=== PATIENT | male | born 1990 | race African-American/Black ===

== ENCOUNTER 2017-05-17 21:33 | Emergency (ER) | payer MEDICAID ==
[~2017-05-17] VITALS: Ht 162.6 cm; Wt 64.9 kg
[2017-05-18 01:12] VITALS: BP 121/79
[2017-05-18] MEDS ORDERED: NALBUPHINE HCL 10 MG/1ml INJECTION IM ONE (01:45)
== END 2017-05-18 02:05 | disposition home or self-care (01) ==
LOC: ER 21:33
DX: M54.5 Low back pain (principal); M54.2 Cervicalgia; G89.29 Other chronic pain; Z88.6 Allergy status to analgesic agent; Z88.8 Allergy status to other drugs, medicaments and biological substances; F17.210 Nicotine dependence, cigarettes, uncomplicated; Z76.0 Encounter for issue of repeat prescription
CPT/HCPCS: 96372; 99283; J2300

== ENCOUNTER 2017-05-19 07:58 | Emergency (ER) | payer MEDICAID ==
[~2017-05-19] VITALS: Ht 162.6 cm; Wt 64.9 kg
[2017-05-19 09:11] VITALS: BP 114/82
[2017-05-19] MEDS ORDERED: KETOROLAC TROMETH 60MG/2ML VIAL IM ONE (09:30)
== END 2017-05-19 09:59 | disposition home or self-care (01) ==
LOC: ER 07:58
DX: S46.912A Strain of unspecified muscle, fascia and tendon at shoulder and upper arm level, left arm, initial encounter (principal); F17.210 Nicotine dependence, cigarettes, uncomplicated; Z88.6 Allergy status to analgesic agent; Z88.8 Allergy status to other drugs, medicaments and biological substances; X50.9XXA Other and unspecified overexertion or strenuous movements or postures, initial encounter; Y93.89 Activity, other specified; Y92.89 Other specified places as the place of occurrence of the external cause; Y99.8 Other external cause status
CPT/HCPCS: 96372; 99283; J1885

== ENCOUNTER 2017-05-22 21:47 | Emergency (ER) | payer MEDICAID ==
[~2017-05-22] VITALS: Ht 162.6 cm; Wt 64.4 kg
[2017-05-22 23:08] VITALS: BP 116/75
== END 2017-05-22 23:56 | disposition home or self-care (01) ==
LOC: ER 21:47
DX: G89.4 Chronic pain syndrome (principal); M54.9 Dorsalgia, unspecified; F17.210 Nicotine dependence, cigarettes, uncomplicated; Z88.6 Allergy status to analgesic agent; Z88.8 Allergy status to other drugs, medicaments and biological substances; Z76.0 Encounter for issue of repeat prescription

== ENCOUNTER 2017-06-04 20:09 | Emergency (ER) | payer MEDICAID ==
[~2017-06-04] VITALS: Ht 162.6 cm; Wt 63.5 kg
[2017-06-04 20:43] VITALS: BP 117/75
== END 2017-06-05 | disposition left against medical advice (07) ==
LOC: ER 20:09
DX: T78.40XA Allergy, unspecified, initial encounter (principal); Z53.21 Procedure and treatment not carried out due to patient leaving prior to being seen by health care provider

== ENCOUNTER 2017-06-05 02:25 | Emergency (ER) | payer MEDICAID ==
[~2017-06-05] VITALS: Ht 162.6 cm; Wt 63.5 kg
[2017-06-05 02:38] VITALS: BP 117/75
== END 2017-06-05 04:21 | disposition home or self-care (01) ==
LOC: ER 02:26
DX: T78.40XA Allergy, unspecified, initial encounter (principal); J45.909 Unspecified asthma, uncomplicated; F17.210 Nicotine dependence, cigarettes, uncomplicated; M54.9 Dorsalgia, unspecified; Z88.8 Allergy status to other drugs, medicaments and biological substances; Z88.6 Allergy status to analgesic agent

== ENCOUNTER 2017-06-23 08:03 | Emergency (ER) | payer MEDICAID ==
[~2017-06-23] VITALS: Ht 162.6 cm; Wt 63.5 kg
[~2017-06-23 08:03] MED LIST: ALBU2TAB4 IN
[2017-06-23 08:52] VITALS: BP 109/76
== END 2017-06-23 09:38 | disposition home or self-care (01) ==
LOC: ER 08:16
DX: M54.5 Low back pain (principal); G89.29 Other chronic pain; J45.909 Unspecified asthma, uncomplicated; F17.210 Nicotine dependence, cigarettes, uncomplicated; Z76.0 Encounter for issue of repeat prescription

== ENCOUNTER 2017-07-17 20:34 | Inpatient (IN) | payer MEDICAID ==
[~2017-07-17] VITALS: Ht 162.6 cm; Wt 63.5 kg
[2017-07-17 22:02] LABS: Basophils # (auto) 0.1 uL; Basophils % (auto) 1.9 % (0.0-2.0); Eosinophils # (auto) 0.5 uL; Eosinophils % (auto) 6.6 % (0.0-7.0); Hematocrit 43.8 % (41.0-53.0); Hemoglobin 14.5 g/dL (13.5-17.5); Lymphocytes % (auto) 54.6 % (10.0-50.0); Mean Corpuscular Hgb Conc. 33.2 g/dL (32.0-36.0); Mean Corpuscular Volume 90.5 fL (80.0-100.0); Monocytes # (auto) 0.6 uL; Monocytes % (auto) 8.5 % (0.0-12.0); Neutrophils # (auto) 2.1 uL; Neutrophils % (auto) 28.4 % (37.0-80.0); Nucleated Red Blood Cells % 0.1 %; Platelet Count (auto) 217 10^3/uL (140-450); Red Blood Cells 4.84 10^6/uL (4.5-5.90); White Blood Cell 7.3 10^3/uL (4.4-10.8)
[2017-07-17 22:16] LABS: INR 0.95 (0.9-1.15); Partial Thromboplastin Time 26.4 sec (22.64-33.71); Prothrombin Time 10.3 sec (9.37-12.3)
[2017-07-17 22:28] LABS: BUN/Creatinine Ratio 14.9; Potassium 3.7 mmol/L (3.5-5.1)
[2017-07-17 22:29] LABS: Albumin 3.9 g/dL (3.4-5.0); Bilirubin, Total 0.1 mg/dL (0.2-1.0); Calcium 8.6 mg/dL (8.5-10.1); Total Protein 7.2 g/dL (6.4-8.2)
[2017-07-18 05:06] LABS: Urine Bacteria NONE SEEN /hpf (None Seen); Urine Blood Negative /uL (Negative); Urine Mucus FEW (None Seen); Urine WBC 1 /hpf (0 - 3)
[2017-07-18] MEDS ORDERED: SODIUM CHLORIDE 0.9% 1,000 ML IV ONE (06:35)
[2017-07-18] MEDS ORDERED: NALBUPHINE HCL 10 MG/1ml INJECTION IV ONE (06:45)
[2017-07-18] MEDS ORDERED: PROMETHAZINE HCL 25 MG/ML 1ML ONE (06:47)
[2017-07-18] MEDS ORDERED: NALBUPHINE HCL 10 MG/1ml INJECTION ONE (06:48)
[2017-07-18] MEDS: PROMETHAZINE HCL 25 MG/ML 1ML IV PRN ×2 (07:01→13:49)
[2017-07-18] MEDS ORDERED: LORazepam 2MG/ML-1ML VIAL IV PRN (08:45)
[2017-07-18] MEDS ORDERED: ALBUTEROL SULF 2.5 MG/0.5ML(0.5%) NEB SOLN NEB PRN (08:45)
[2017-07-18] MEDS ORDERED: MORPHINE SULFATE 4 MG/ML SYR/VIAL IV PRN (08:45)
[2017-07-18] MEDS ORDERED: MORPHINE SULFATE 10 MG/ML INJ 1ML SDV IV PRN (08:45)
[2017-07-18] MEDS ORDERED: PROMETHAZINE HCL 25 MG/ML 1ML IV PRN (08:45)
[2017-07-18] MEDS ORDERED: cefTRIAXone 1GM/10ml IVPUSH 10 ML IV SCH (09:00)
[2017-07-18] MEDS ORDERED: cefTRIAXone 1GM/10ml IVPUSH 10 ML IV ONE (09:12)
[2017-07-18 09:21] VITALS: BP 114/69
[2017-07-18] MEDS ORDERED: FAMOTIDINE (10MG/ML) 2ML VL IV SCH (10:00)
[2017-07-18] MEDS: SODIUM CHLORIDE 0.9% 1,000 ML IV SCH ×3 (10:43→22:25)
[2017-07-18] MEDS: metroNIDAZOLE 500MG/100ML 100 ML IV SCH ×2 (13:48→22:25)
[2017-07-18] MEDS: MORPHINE SULF INJ 2 MG/ML SYRINGE 1ML IV PRN ×3 (13:49→22:33)
[2017-07-18 17:00] VITALS: BP 117/79
[2017-07-18] MEDS: SUCRALFATE 1 GM/10 ML ORAL SUSP PO SCH ×2 (17:55→22:25)
[2017-07-18 20:00] VITALS: BP 109/65
[2017-07-18 21:15] VITALS: BP 109/65
[2017-07-18] MEDS: PANTOPRAZOLE 40 MG/10 ML VIAL IV SCH (22:25)
[2017-07-19] VITALS (7 sets, daily range): BP systolic 113–127; BP diastolic 70–80
[2017-07-19 06:03] LABS: Basophils # (auto) 0.1 uL; Eosinophils # (auto) 0.4 uL; Eosinophils % (auto) 8.2 % (0.0-7.0); Hematocrit 42.5 % (41.0-53.0); Hemoglobin 14.4 g/dL (13.5-17.5); Lymphocytes # (auto) 2.3 uL; Lymphocytes % (auto) 49.9 % (10.0-50.0); Mean Corpuscular Hemoglobin 30.7 pg (28.0-32.0); Mean Corpuscular Hgb Conc. 33.8 g/dL (32.0-36.0); Mean Corpuscular Volume 90.9 fL (80.0-100.0); Monocytes # (auto) 0.5 uL; Monocytes % (auto) 9.9 % (0.0-12.0); Neutrophils # (auto) 1.4 uL; Nucleated Red Blood Cells % 0.1 %; Platelet Count (auto) 190 10^3/uL (140-450); Red Blood Cells 4.68 10^6/uL (4.5-5.90); White Blood Cell 4.6 10^3/uL (4.4-10.8)
[2017-07-19 06:10] LABS: Potassium 4.3 mmol/L (3.5-5.1)
[2017-07-19 06:18] LABS: Albumin 3.4 g/dL (3.4-5.0); BUN/Creatinine Ratio 13.9; Calcium 8.6 mg/dL (8.5-10.1)
[2017-07-19 06:20] LABS: Bilirubin, Total 0.4 mg/dL (0.2-1.0); Total Protein 5.9 g/dL (6.4-8.2)
[2017-07-19 06:21] LABS: Cholesterol 152 mg/dL (< 200); HDL Cholesterol 59 mg/dL (40-59); LDL Cholesterol 84 mg/dL (< 100); Triglycerides 72 mg/dL (< 150)
[2017-07-19] MEDS: metroNIDAZOLE 500MG/100ML 100 ML IV SCH (06:45)
[2017-07-19] MEDS: MORPHINE SULF INJ 2 MG/ML SYRINGE 1ML IV PRN ×5 (06:45→23:45)
[2017-07-19] MEDS: SODIUM CHLORIDE 0.9% 1,000 ML IV SCH ×3 (06:45→17:54)
[2017-07-19] MEDS: SUCRALFATE 1 GM/10 ML ORAL SUSP PO SCH ×4 (06:45→22:58)
[2017-07-19] MEDS: PANTOPRAZOLE 40 MG/10 ML VIAL IV SCH ×2 (10:23→22:58)
[2017-07-20] MEDS: SODIUM CHLORIDE 0.9% 1,000 ML IV SCH ×3 (00:50→13:54)
[2017-07-20 05:00] VITALS: BP 118/73
[2017-07-20 06:44] LABS: Albumin 3.2 g/dL (3.4-5.0); BUN/Creatinine Ratio 12.8; Bilirubin, Total 0.4 mg/dL (0.2-1.0); Calcium 7.9 mg/dL (8.5-10.1); Total Protein 6.1 g/dL (6.4-8.2)
[2017-07-20] MEDS: SUCRALFATE 1 GM/10 ML ORAL SUSP PO SCH ×3 (06:53→17:00)
[2017-07-20] MEDS: MORPHINE SULF INJ 2 MG/ML SYRINGE 1ML IV PRN ×2 (06:54→11:47)
[2017-07-20 09:00] VITALS: BP 126/84
[2017-07-20] MEDS: PANTOPRAZOLE 40 MG/10 ML VIAL IV SCH (09:55)
[2017-07-20 13:00] VITALS: BP 131/86
[2017-07-20 14:20] VITALS: BP 131/86
[2017-07-20 17:12] VITALS: BP 126/81
== END 2017-07-20 17:25 | disposition home or self-care (01) | DRG 241 ==
LOC: ER 20:34 → OVERFLOW 20:35 → ER 23:53 → WEST WING 07-18 15:55
PROVIDERS: ADMIT Internal Medicine; ATTEND Internal Medicine
DX: K29.80 Duodenitis without bleeding (principal); K85.90 Acute pancreatitis without necrosis or infection, unspecified; E44.1 Mild protein-calorie malnutrition; E88.09 Other disorders of plasma-protein metabolism, not elsewhere classified; K29.20 Alcoholic gastritis without bleeding; F10.10 Alcohol abuse, uncomplicated; F12.10 Cannabis abuse, uncomplicated; G89.29 Other chronic pain; J45.909 Unspecified asthma, uncomplicated; K80.20 Calculus of gallbladder without cholecystitis without obstruction; Y90.9 Presence of alcohol in blood, level not specified; K21.9 Gastro-esophageal reflux disease without esophagitis; Z68.24 Body mass index [BMI] 24.0-24.9, adult; Z88.8 Allergy status to other drugs, medicaments and biological substances
CPT/HCPCS: 36415; 74176; 76705; 80053; 80061; 81001; 82150; 83690; 84443; 85025; 85610; 85652; 85730; 86141; 96361; 96365; 96375; C9113; J3490

== ENCOUNTER 2017-07-30 22:28 | Emergency (ER) | payer MEDICAID ==
[~2017-07-30] VITALS: Ht 154.9 cm; Wt 61.7 kg
[2017-07-30 23:06] LABS: Basophils # (auto) 0 uL; Basophils % (auto) 0.6 % (0.0-2.0); Eosinophils # (auto) 0.5 uL; Eosinophils % (auto) 10.3 % (0.0-7.0); Hematocrit 45.4 % (41.0-53.0); Hemoglobin 14.9 g/dL (13.5-17.5); Lymphocytes # (auto) 2.5 uL; Lymphocytes % (auto) 48.7 % (10.0-50.0); Mean Corpuscular Hgb Conc. 32.9 g/dL (32.0-36.0); Mean Corpuscular Volume 91.2 fL (80.0-100.0); Monocytes # (auto) 0.4 uL; Monocytes % (auto) 8.4 % (0.0-12.0); Neutrophils # (auto) 1.7 uL; Nucleated Red Blood Cells % 0.1 %; Platelet Count (auto) 207 10^3/uL (140-450); Red Blood Cells 4.98 10^6/uL (4.5-5.90); Red Cell Distribution Width 12.7 % (11.8-14.3); White Blood Cell 5.2 10^3/uL (4.4-10.8)
[2017-07-30 23:23] LABS: BUN/Creatinine Ratio 14.6; Calcium 8.9 mg/dL (8.5-10.1); Potassium 3.3 mmol/L (3.5-5.1)
[2017-07-30 23:26] LABS: Bilirubin, Total 0.2 mg/dL (0.2-1.0); Total Protein 7.4 g/dL (6.4-8.2)
[2017-07-31 05:11] VITALS: BP 115/67
== END 2017-07-31 05:45 | disposition home or self-care (01) ==
LOC: ER 22:30
DX: K52.9 Noninfective gastroenteritis and colitis, unspecified (principal); K21.9 Gastro-esophageal reflux disease without esophagitis; J45.909 Unspecified asthma, uncomplicated; F17.210 Nicotine dependence, cigarettes, uncomplicated
CPT/HCPCS: 36415; 74176; 80053; 82150; 83690; 85025

== ENCOUNTER 2017-08-15 20:10 | Emergency (ER) | payer MEDICAID ==
[~2017-08-15] VITALS: Ht 162.6 cm; Wt 59.0 kg
[2017-08-15 20:44] VITALS: BP 110/61
[2017-08-15] MEDS ORDERED: HYDROcodone-ACET 10/325MG TAB PO ONE (21:30)
== END 2017-08-15 21:40 | disposition home or self-care (01) ==
LOC: ER 20:11
DX: G89.4 Chronic pain syndrome (principal); M54.5 Low back pain; F17.210 Nicotine dependence, cigarettes, uncomplicated; K21.9 Gastro-esophageal reflux disease without esophagitis; J45.909 Unspecified asthma, uncomplicated; Z88.6 Allergy status to analgesic agent

== ENCOUNTER 2017-08-24 20:07 | Emergency (ER) | payer MEDICAID ==
[~2017-08-24] VITALS: Ht 162.6 cm; Wt 61.2 kg
[2017-08-25 07:25] VITALS: BP 127/84
== END 2017-08-25 07:51 | disposition home or self-care (01) ==
LOC: ER 20:07
DX: M54.5 Low back pain (principal); G89.29 Other chronic pain; F17.210 Nicotine dependence, cigarettes, uncomplicated; K21.9 Gastro-esophageal reflux disease without esophagitis; Z88.6 Allergy status to analgesic agent; Z88.8 Allergy status to other drugs, medicaments and biological substances

== ENCOUNTER 2017-09-19 21:59 | Emergency (ER) | payer MEDICAID ==
[~2017-09-19] VITALS: Ht 162.6 cm; Wt 59.0 kg
[2017-09-19 22:20] VITALS: BP 138/80
[2017-09-20] MEDS ORDERED: ACETAMINOPHEN/CODEINE#3 (300/30mg) TAB PO ONE (06:45)
== END 2017-09-20 06:53 | disposition home or self-care (01) ==
LOC: ER 21:59
DX: S39.012A Strain of muscle, fascia and tendon of lower back, initial encounter (principal); J45.909 Unspecified asthma, uncomplicated; F17.210 Nicotine dependence, cigarettes, uncomplicated; K21.9 Gastro-esophageal reflux disease without esophagitis; Z88.6 Allergy status to analgesic agent; Z88.8 Allergy status to other drugs, medicaments and biological substances; X50.1XXA Overexertion from prolonged static or awkward postures, initial encounter; Y93.89 Activity, other specified; Y92.89 Other specified places as the place of occurrence of the external cause; Y99.8 Other external cause status

== ENCOUNTER 2017-10-10 04:51 | Emergency (ER) | payer MEDICAID ==
[~2017-10-10] VITALS: Ht 162.6 cm; Wt 63.5 kg
[2017-10-10 07:15] VITALS: BP 122/84
== END 2017-10-10 07:25 | disposition home or self-care (01) ==
LOC: ER 04:52
DX: M67.432 Ganglion, left wrist (principal); G89.29 Other chronic pain; M54.9 Dorsalgia, unspecified; K21.9 Gastro-esophageal reflux disease without esophagitis; F17.210 Nicotine dependence, cigarettes, uncomplicated; F12.10 Cannabis abuse, uncomplicated; Z90.49 Acquired absence of other specified parts of digestive tract; Z88.8 Allergy status to other drugs, medicaments and biological substances

== ENCOUNTER 2017-12-14 21:51 | Emergency (ER) | payer MEDICAID ==
[~2017-12-14] VITALS: Ht 162.6 cm; Wt 59.0 kg
[2017-12-15 00:23] LABS: Basophils # (auto) 0.1 uL; Basophils % (auto) 1.7 % (0.0-2.0); Eosinophils # (auto) 0.4 uL; Eosinophils % (auto) 7.5 % (0.0-7.0); Hematocrit 42.5 % (41.0-53.0); Hemoglobin 14.3 g/dL (13.5-17.5); Lymphocytes # (auto) 2.8 uL; Lymphocytes % (auto) 50.6 % (10.0-50.0); Mean Corpuscular Hemoglobin 30.9 pg (28.0-32.0); Mean Corpuscular Hgb Conc. 33.5 g/dL (32.0-36.0); Mean Corpuscular Volume 92.1 fL (80.0-100.0); Monocytes # (auto) 0.5 uL; Neutrophils # (auto) 1.6 uL; Neutrophils % (auto) 30.2 % (37.0-80.0); Platelet Count (auto) 188 10^3/uL (140-450); Red Blood Cells 4.62 10^6/uL (4.5-5.90); Red Cell Distribution Width 12.8 % (11.8-14.3); White Blood Cell 5.5 10^3/uL (4.4-10.8)
[2017-12-15 00:43] LABS: Albumin 3.7 g/dL (3.4-5.0); BUN/Creatinine Ratio 15.6; Calcium 8.2 mg/dL (8.5-10.1); Potassium 3.4 mmol/L (3.5-5.1)
[2017-12-15 00:46] LABS: Bilirubin, Total 0.1 mg/dL (0.2-1.0)
[2017-12-15 02:24] VITALS: BP 128/99
[2017-12-15 04:32] LABS: Urine Bacteria FEW /hpf (None Seen); Urine Blood Negative /uL (Negative); Urine Specific Gravity 1.008 (1.001-1.035); Urine WBC <1 /hpf (0 - 3)
[2017-12-15 05:12] LABS: Amphetamine Screen, Urine NEGATIVE (NEGATIVE); Barbiturate Scree,Urine NEGATIVE (NEGATIVE); Benzodiazephine Screen, Urine NEGATIVE (NEGATIVE); Cannabinoid Screen, Urine POSITIVE (NEGATIVE); Cocaine Screen, Urine NEGATIVE (NEGATIVE); Opiate Scree,Urine NEGATIVE (NEGATIVE); Phencyclidine Screen, Urine NEGATIVE (NEGATIVE)
== END 2017-12-15 04:13 | disposition home or self-care (01) ==
LOC: ER 21:51
DX: K59.00 Constipation, unspecified (principal); R10.13 Epigastric pain; K21.9 Gastro-esophageal reflux disease without esophagitis; J45.909 Unspecified asthma, uncomplicated; G89.29 Other chronic pain; M54.9 Dorsalgia, unspecified; F17.210 Nicotine dependence, cigarettes, uncomplicated; Z88.6 Allergy status to analgesic agent; Z88.8 Allergy status to other drugs, medicaments and biological substances
CPT/HCPCS: 36415; 74176; 80053; 80307; 81001; 82150; 83690; 85025

== ENCOUNTER 2018-01-01 06:22 | Emergency (ER) | payer MEDICAID ==
[~2018-01-01] VITALS: Ht 162.6 cm; Wt 66.7 kg
[2018-01-01 06:49] VITALS: BP 122/87
[2018-01-01] MEDS ORDERED: HYDROcodone-ACET 10/325MG TAB PO ONE (08:15)
== END 2018-01-01 08:27 | disposition home or self-care (01) ==
LOC: ER 06:28
DX: M54.5 Low back pain (principal); J45.909 Unspecified asthma, uncomplicated; K21.9 Gastro-esophageal reflux disease without esophagitis; F17.210 Nicotine dependence, cigarettes, uncomplicated; Z88.6 Allergy status to analgesic agent

== ENCOUNTER 2018-02-15 19:43 | Emergency (ER) | payer MEDICAID ==
[~2018-02-15] VITALS: Ht 162.6 cm; Wt 62.6 kg
[2018-02-15 20:59] LABS: Urine Bacteria NONE SEEN /hpf (None Seen); Urine Blood Negative /uL (Negative); Urine Specific Gravity 1.001 (1.001-1.035); Urine WBC <1 /hpf (0 - 3)
[2018-02-15 21:12] LABS: Basophils # (auto) 0.1 uL; Basophils % (auto) 2.5 % (0.0-2.0); Eosinophils # (auto) 0.3 uL; Eosinophils % (auto) 6.5 % (0.0-7.0); Hematocrit 44.7 % (41.0-53.0); Hemoglobin 14.8 g/dL (13.5-17.5); Lymphocytes # (auto) 2.3 uL; Lymphocytes % (auto) 50.8 % (10.0-50.0); Mean Corpuscular Hemoglobin 30.8 pg (28.0-32.0); Mean Corpuscular Hgb Conc. 33.2 g/dL (32.0-36.0); Mean Corpuscular Volume 92.9 fL (80.0-100.0); Monocytes # (auto) 0.4 uL; Monocytes % (auto) 7.8 % (0.0-12.0); Neutrophils # (auto) 1.5 uL; Neutrophils % (auto) 32.4 % (37.0-80.0); Nucleated Red Blood Cells % 0.2 %; Platelet Count (auto) 188 10^3/uL (140-450); Red Blood Cells 4.81 10^6/uL (4.5-5.90); Red Cell Distribution Width 12.6 % (11.8-14.3); White Blood Cell 4.6 10^3/uL (4.4-10.8)
[2018-02-15 21:28] LABS: Albumin 3.8 g/dL (3.4-5.0); BUN/Creatinine Ratio 13.2; Calcium 8.5 mg/dL (8.5-10.1); Potassium 3.4 mmol/L (3.5-5.1)
[2018-02-15 21:34] LABS: Bilirubin, Total 0.3 mg/dL (0.2-1.0); Total Protein 7.3 g/dL (6.4-8.2)
[2018-02-16] MEDS ORDERED: SODIUM CHLORIDE 0.9% 1,000 ML IVB ONE (08:45)
[2018-02-16] MEDS ORDERED: NALBUPHINE HCL 10 MG/1ml INJECTION IV ONE (08:45)
[2018-02-16] MEDS ORDERED: PROMETHAZINE HCL 25 MG/ML 1ML IV PRN (08:45)
[2018-02-16] MEDS ORDERED: POTASSIUM EFFERVESENT TAB 25 MEQ PO ONE (10:45)
[2018-02-16 11:24] VITALS: BP 118/67
== END 2018-02-16 13:00 | disposition home or self-care (01) ==
LOC: ER 19:45
DX: K52.89 Other specified noninfective gastroenteritis and colitis (principal); J45.909 Unspecified asthma, uncomplicated; K21.9 Gastro-esophageal reflux disease without esophagitis; Z88.6 Allergy status to analgesic agent
CPT/HCPCS: 36415; 74018; 80053; 81001; 82150; 83690; 85025; 96374; 96375; 99285; J2300; J2550; J7030

== ENCOUNTER 2018-04-22 20:10 | Emergency (ER) | payer MEDICAID ==
[~2018-04-22] VITALS: Ht 170.2 cm; Wt 72.6 kg
[2018-04-23 00:33] LABS: Basophils # (auto) 0.1 uL; Basophils % (auto) 1.5 % (0.0-2.0); Eosinophils # (auto) 0.5 uL; Eosinophils % (auto) 7.9 % (0.0-7.0); Hemoglobin 15.2 g/dL (13.5-17.5); Lymphocytes # (auto) 2.6 uL; Lymphocytes % (auto) 44.5 % (10.0-50.0); Mean Corpuscular Hemoglobin 30.3 pg (28.0-32.0); Mean Corpuscular Hgb Conc. 33.1 g/dL (32.0-36.0); Mean Corpuscular Volume 91.6 fL (80.0-100.0); Monocytes # (auto) 0.6 uL; Neutrophils # (auto) 2.1 uL; Neutrophils % (auto) 36.1 % (37.0-80.0); Nucleated Red Blood Cells % 0.1 %; Platelet Count (auto) 189 10^3/uL (140-450); Red Blood Cells 5.02 10^6/uL (4.5-5.90); Red Cell Distribution Width 13.2 % (11.8-14.3); White Blood Cell 5.9 10^3/uL (4.4-10.8)
[2018-04-23] MEDS ORDERED: SODIUM CHLORIDE 0.9% 1,000 ML IV ONE (00:45)
[2018-04-23] MEDS ORDERED: ONDANSETRON HCL 4 MG/2 ML VIAL IV ONE (00:45)
[2018-04-23] MEDS ORDERED: MORPHINE SULFATE 4 MG/ML SYR/VIAL IV ONE (00:45)
[2018-04-23 00:49] LABS: Calcium 8.2 mg/dL (8.5-10.1); Potassium 3.8 mmol/L (3.5-5.1)
[2018-04-23 00:53] LABS: Bilirubin, Total 0.1 mg/dL (0.2-1.0); Total Protein 7.7 g/dL (6.4-8.2)
[2018-04-23 03:20] LABS: Urine Bacteria NONE SEEN /hpf (None Seen); Urine Blood Negative /uL (Negative); Urine Mucus FEW (None Seen); Urine Specific Gravity 1.016 (1.001-1.035); Urine WBC 1 /hpf (0 - 3)
[2018-04-23 03:34] LABS: Amphetamine Screen, Urine NEGATIVE (NEGATIVE); Barbiturate Scree,Urine NEGATIVE (NEGATIVE); Benzodiazephine Screen, Urine NEGATIVE (NEGATIVE); Cannabinoid Screen, Urine POSITIVE (NEGATIVE); Cocaine Screen, Urine NEGATIVE (NEGATIVE); Opiate Scree,Urine NEGATIVE (NEGATIVE); Phencyclidine Screen, Urine NEGATIVE (NEGATIVE)
[2018-04-23 05:00] VITALS: BP 110/68
== END 2018-04-23 05:43 | disposition home or self-care (01) ==
LOC: ER 20:10
DX: K29.70 Gastritis, unspecified, without bleeding (principal); F19.10 Other psychoactive substance abuse, uncomplicated; F10.10 Alcohol abuse, uncomplicated; J45.909 Unspecified asthma, uncomplicated; K21.9 Gastro-esophageal reflux disease without esophagitis; F17.210 Nicotine dependence, cigarettes, uncomplicated; Z88.6 Allergy status to analgesic agent; Z88.8 Allergy status to other drugs, medicaments and biological substances
CPT/HCPCS: 36415; 74176; 80053; 80307; 81001; 83690; 85025; 96361; 96374; 96375; 99285; J2270; J2405

== ENCOUNTER 2018-04-23 21:58 | Emergency (ER) | payer MEDICAID ==
[~2018-04-23] VITALS: Ht 162.6 cm; Wt 59.0 kg
[2018-04-23 22:47] VITALS: BP 137/87
[2018-04-23 23:14] LABS: Urine Bacteria NONE SEEN /hpf (None Seen); Urine Blood Negative /uL (Negative); Urine Mucus FEW (None Seen); Urine Specific Gravity 1.023 (1.001-1.035); Urine WBC 1 /hpf (0 - 3)
[2018-04-23 23:29] LABS: Alcohol, Urine < 3.0 mg/dL (0-5); Amphetamine Screen, Urine NEGATIVE (NEGATIVE); Barbiturate Scree,Urine NEGATIVE (NEGATIVE); Benzodiazephine Screen, Urine NEGATIVE (NEGATIVE); Cannabinoid Screen, Urine POSITIVE (NEGATIVE); Cocaine Screen, Urine NEGATIVE (NEGATIVE); Opiate Scree,Urine NEGATIVE (NEGATIVE); Phencyclidine Screen, Urine NEGATIVE (NEGATIVE)
[2018-04-24] MEDS ORDERED: DEXAMETHASONE SOD PHOS 10MG/1ML VIAL INJ IM ONE (01:15)
== END 2018-04-24 01:07 | disposition home or self-care (01) ==
LOC: ER 22:02
DX: G89.29 Other chronic pain (principal); M54.5 Low back pain; K59.00 Constipation, unspecified; J45.909 Unspecified asthma, uncomplicated; K21.9 Gastro-esophageal reflux disease without esophagitis; Z88.6 Allergy status to analgesic agent; F17.210 Nicotine dependence, cigarettes, uncomplicated; X50.1XXA Overexertion from prolonged static or awkward postures, initial encounter; Y93.89 Activity, other specified; Y92.89 Other specified places as the place of occurrence of the external cause; Y99.8 Other external cause status
CPT/HCPCS: 72100; 80307; 81001; 96372; 99285; J1100

== ENCOUNTER → 2018-09-06 | Emergency (ER) | payer MEDICAID ==
[~2018-09-06] MED LIST changes: -ALBU2TAB4 IN; +ALBUAER3 IN; +BECL80AE11 IN; +HYDR-531 PO; +PANT40T PO
== END | disposition left against medical advice (07) ==
LOC: ER 23:22
DX: R52 Pain, unspecified (principal); Z53.21 Procedure and treatment not carried out due to patient leaving prior to being seen by health care provider

== ENCOUNTER 2018-09-07 05:15 | Emergency (ER) | payer MEDICAID | END 2018-09-07 05:43 | disposition left against medical advice (07) | LOC: ER 05:15 | DX: M79.10 Myalgia, unspecified site (principal); Z53.21 Procedure and treatment not carried out due to patient leaving prior to being seen by health care provider ==

== ENCOUNTER 2021-01-18 22:46 | Emergency (ER) | payer MEDICAID ==
[~2021-01-18] VITALS: Ht 160 cm; Wt 68.0 kg
[2021-01-19 01:16] LABS: BUN/Creatinine Ratio 12.3; Calcium 8.8 mg/dL (8.5-10.1); Potassium 3.4 mmol/L (3.5-5.1)
[2021-01-19 01:17] LABS: Albumin 3.9 g/dL (3.4-5.0); Bilirubin, Total 0.3 mg/dL (0.2-1.0); Total Protein 7.7 g/dL (6.4-8.2)
[2021-01-19 01:42] LABS: Basophils # (auto) 0.1 10 ^3/uL (0-0.2); Basophils % (auto) 1.3 % (0.0-2.0); Eosinophils # (auto) 0.3 10 ^3/uL (0-0.8); Eosinophils % (auto) 4.2 % (0.0-7.0); Hematocrit 43.9 % (41.0-53.0); Hemoglobin 14.6 g/dL (13.5-17.5); Lymphocytes # (auto) 3.7 10 ^3/uL (0.4-5.4); Lymphocytes % (auto) 48.5 % (10.0-50.0); Mean Corpuscular Hgb Conc. 33.3 g/dL (32.0-36.0); Mean Corpuscular Volume 90.1 fL (80.0-100.0); Monocytes # (auto) 0.7 10 ^3/uL (0-1.3); Monocytes % (auto) 9.6 % (0.0-12.0); Neutrophils # (auto) 2.8 10 ^3/uL (1.6-8.6); Neutrophils % (auto) 36.4 % (37.0-80.0); Nucleated Red Blood Cells % 0.1 %; Red Blood Cells 4.87 10^6/uL (4.5-5.90); Red Cell Distribution Width 13.2 % (11.8-14.3); White Blood Cell 7.6 10^3/uL (4.4-10.8)
[2021-01-19] MEDS ORDERED: IOHEXOL 300 MG/ML 100ML BOTTLE IJ ONE (02:56)
[2021-01-19] MEDS ORDERED: ACETAMINOPHEN 500 MG TAB PO ONE ×2 (03:00→06:00)
[2021-01-19 06:10] VITALS: BP 124/89
[2021-01-19] MEDS ORDERED: traMADol HCL 50 MG TAB PO ONE (06:15)
== END 2021-01-19 06:30 | disposition home or self-care (01) ==
LOC: ER 22:46
DX: K29.80 Duodenitis without bleeding (principal); K62.89 Other specified diseases of anus and rectum; F17.210 Nicotine dependence, cigarettes, uncomplicated; F12.10 Cannabis abuse, uncomplicated; K21.9 Gastro-esophageal reflux disease without esophagitis; J45.909 Unspecified asthma, uncomplicated; Z88.6 Allergy status to analgesic agent
CPT/HCPCS: 36415; 74177; 80053; 83605; 83690; 85025; 99285; Q9967

== ENCOUNTER 2022-02-25 21:24 | Emergency (ER) | payer MEDICAID ==
[~2022-02-25] VITALS: Ht 160 cm; Wt 68.0 kg
[2022-02-25 21:37] VITALS: BP 114/69
[2022-02-25 22:12] LABS: Basophils # (auto) 0.1 10 ^3/uL (0-0.2); Basophils % (auto) 1.2 % (0.0-2.0); Eosinophils # (auto) 0.3 10 ^3/uL (0-0.8); Eosinophils % (auto) 4.1 % (0.0-7.0); Hematocrit 45.5 % (41.0-53.0); Hemoglobin 15.1 g/dL (13.5-17.5); Lymphocytes # (auto) 3.3 10 ^3/uL (0.4-5.4); Lymphocytes % (auto) 42.7 % (10.0-50.0); Mean Corpuscular Hemoglobin 30.6 pg (28.0-32.0); Mean Corpuscular Hgb Conc. 33.2 g/dL (32.0-36.0); Monocytes # (auto) 0.7 10 ^3/uL (0-1.3); Monocytes % (auto) 8.7 % (0.0-12.0); Neutrophils # (auto) 3.4 10 ^3/uL (1.6-8.6); Neutrophils % (auto) 43.3 % (37.0-80.0); Nucleated Red Blood Cells % 0.1 %; Red Blood Cells 4.94 10^6/uL (4.5-5.90); Red Cell Distribution Width 12.5 % (11.8-14.3); White Blood Cell 7.8 10^3/uL (4.4-10.8)
[2022-02-25 22:55] LABS: Albumin 4.1 g/dL (3.4-5.0); Calcium 8.5 mg/dL (8.5-10.1); Potassium 3.3 mmol/L (3.5-5.1)
[2022-02-25 23:04] LABS: BUN/Creatinine Ratio 12.9; Bilirubin, Total 0.5 mg/dL (0.2-1.0)
[2022-02-25 23:05] LABS: Total Protein 7.9 g/dL (6.4-8.2)
[2022-02-26] MEDS ORDERED: PANT40TA2 PO (04:12)
[2022-02-26] MEDS ORDERED: ONDA-144 PO (04:12)
[2022-02-26] MEDS ORDERED: HYDR-4798 PO (04:12)
== END 2022-02-26 04:41 | disposition home or self-care (01) ==
LOC: ER 21:24
DX: K85.90 Acute pancreatitis without necrosis or infection, unspecified (principal); J45.909 Unspecified asthma, uncomplicated; K21.9 Gastro-esophageal reflux disease without esophagitis; F17.210 Nicotine dependence, cigarettes, uncomplicated; Z79.899 Other long term (current) drug therapy; Z88.8 Allergy status to other drugs, medicaments and biological substances
CPT/HCPCS: 36415; 80053; 82150; 83690; 85025

== ENCOUNTER 2022-06-29 20:57 | Emergency (ER) | payer MEDICAID ==
[~2022-06-29] VITALS: Ht 157.5 cm; Wt 76.0 kg
[~2022-06-29 20:57] MED LIST changes: +HYDR-4798 PO; +ONDA-144 PO; +PANT40TA2 PO
[2022-06-30 00:19] VITALS: BP 138/81
[2022-06-30] MEDS ORDERED: HYDROcodone-ACET 10/325MG TAB PO ONE (00:45)
== END 2022-06-30 00:49 | disposition home or self-care (01) ==
LOC: ER 20:57
DX: J06.9 Acute upper respiratory infection, unspecified (principal); F12.10 Cannabis abuse, uncomplicated; J45.909 Unspecified asthma, uncomplicated; F17.210 Nicotine dependence, cigarettes, uncomplicated; Z20.822 Contact with and (suspected) exposure to COVID-19; Z88.6 Allergy status to analgesic agent
CPT/HCPCS: 36415; 87426; 87804

== ENCOUNTER 2024-12-09 22:10 | Emergency (ER) | payer MEDICAID ==
[~2024-12-09] VITALS: Ht 160 cm; Wt 73.6 kg
[2024-12-09 22:49] LABS: Basophils # (auto) 0.1 10 ^3/uL (0-0.2); Basophils % (auto) 1.3 % (0.0-2.0); Eosinophils # (auto) 0.3 10 ^3/uL (0-0.8); Eosinophils % (auto) 4.8 % (0.0-7.0); Hematocrit 44.3 % (41.0-53.0); Hemoglobin 14.9 g/dL (13.5-17.5); Lymphocytes # (auto) 2.9 10 ^3/uL (0.4-5.4); Lymphocytes % (auto) 41.2 % (10.0-50.0); Mean Corpuscular Hemoglobin 30.9 pg (28.0-32.0); Mean Corpuscular Hgb Conc. 33.6 g/dL (32.0-36.0); Monocytes % (auto) 13.6 % (0.0-12.0); Neutrophils # (auto) 2.8 10 ^3/uL (1.6-8.6); Neutrophils % (auto) 39.1 % (37.0-80.0); Nucleated Red Blood Cells % 0.1 %; Platelet Count (auto) 198 10^3/uL (140-450); Red Blood Cells 4.81 10^6/uL (4.5-5.90); Red Cell Distribution Width 12.9 % (11.8-14.3); White Blood Cell 7.1 10^3/uL (4.4-10.8)
[2024-12-09 23:09] LABS: Alanine Aminotransferase 54 U/L (7-40); Albumin 4.9 g/dL (3.2-4.8); Alkaline Phosphatase 80 U/L (46-116); Anion Gap 7 (5-15); Aspartate Aminotransferase 46 U/L (13-40); Bilirubin, Total 0.4 mg/dL (0.2-1.0); Blood Urea Nitrogen 10 mg/dL (9-23); Calcium 9.3 mg/dL (8.7-10.4); Carbon Dioxide 24 mmol/L (20-31); Chloride 106 mmol/L (98-107); Glucose 93 mg/dL (74-106); Lipase 99 U/L (12-53); Potassium 3.9 mmol/L (3.5-5.1); Sodium 137 mmol/L (136-145); Total Protein 7.4 g/dL (5.7-8.2)
[2024-12-10 00:04] VITALS: BP 157/99; PULSE 93; RESP 18; TEMP 98; O2SAT 97
[2024-12-10] MEDS: MAALOX PLUS or MAALOX 30 ML PO ONE (00:04)
[2024-12-10] MEDS: HYDROcodone-ACET 10/325MG TAB PO ONE (00:04)
[2024-12-10] MEDS: ONDANSETRON ODT 4 MG TAB PO ONE (00:05)
--- NOTE | 2024-12-10 00:33 | ED.PDOC ---
History of Present Illness HPI Comments 33 y/o M presents with 2x day history of epigastric abdominal pain, that radiates, directly, to his back, with associated nausea, and diarrhea. He endorses on previous history of gastritis and pancreatitis and marijuana and tobacco cigarette use. No recent travel, injuries, sick contact, spoiled food consumption, or substance use/exposure endorsed. Patient denies any vomiting, diarrhea, urinary symptoms, fever, chills, or further associated symptoms. Chief Complaint: Abdominal Pain Time Seen by MD: 23:30 Primary Care Provider: Kaia Reviewed Notes: Nurses Notes, Medications, Allergies Allergies: Coded Allergies: Cyclobenzaprine (Verified Allergy, Unknown, 01/22/18) Ibuprofen (Verified Allergy, Unknown, 01/22/18) Tramadol (Verified Allergy, Unknown, 01/22/18) Home Meds Active Scripts Famotidine (PEPCID TABLET) 20 Mg Tb, 1 TAB PO BID PRN, #60 TAB 5 Refills Prov:JESSICA NGUYEN MD 12/10/24 Gabapentin (Once-Daily) (Gabapentin) 300 Mg Tab, 300 MG PO Q6HP PRN, #60 TAB Prov:JESSICA NGUYEN MD 12/10/24 Amoxicillin Trihydrate (Amoxicillin) 500 Mg Cap, 1 CAP PO TID for 10 Days, #30 CAP Prov:JESSICA NGUYEN MD 12/10/24 Ondansetron (Zofran) 4 Mg Tab, 4 MG PO Q6HPRN PRN, #30 MG Prov:LIONEL JAMESON DO 02/26/22 Pantoprazole Sodium Sesquihydr (Protonix) 40 Mg Tab, 40 MG PO DAILY, #30 TAB Prov:LIONEL JAMESON DO 02/26/22 Hydrocodone-Acetaminophen (Hydrocodone Bitartrate/AC 10-325 mg) 1 Tab Tab, 1 TAB PO Q6HPRN PRN, #30 TAB Prov:LIONEL JAMESON DO 02/26/22 Pantoprazole Sodium Sesquihydr (Pantoprazole Sodium) 40 Mg Tab, 40 MG PO DAILY, #30 TAB 1 Refill Prov:DEISY QIU MD 08/01/18 Reported Medications Beclomethasone Dipropionate (Qvar Redihaler) 80 Mcg/Act Aer, 80 MCG IN, AER 07/31/18 Albuterol Sulfate (VENTOLIN MDI) 90 Mcg Ih, 90 MCG IN 07/31/18 Hydrocodone-Acetaminophen ([place] 10-325 mg) 1 Tab Tab, 1 TAB PO Q6HP PRN for MODERATE PAIN, TAB 07/31/18 Information Source: Patient Mode of Arrival: Ambulatory Severity: Moderate Timing: Days Duration: Since onset Prehospital treatment: None Past Medical History PAST MEDICAL HISTORY: Asthma Past Medical History (Other): pancreatitis gastritis Surgical History: Denies all surgeries Family History Family History: Reviewed,noncontributory to illness Social History Smoker: Cigarettes, Less Than 1 Pack/Day Alcohol: Occasionally Drugs: Marijuana Lives In: Home All Other Systems: Reviewed and Negative (Comprehensive systems review obtained and negative except for what is stated in the HPI.) Physical Exam General Appearance: Mild Distress, Normal HEENT: Normal ENT Inspection, Pharynx Normal, TMs Normal Neck: Full Range of Motion, Non-Tender, Normal, Normal Inspection Respiratory: Chest Non-Tender, Lungs Clear, No Accessory Muscle Use, No Respiratory Distress, Normal Breath Sounds Cardiovascular: No Edema, No JVD, No Murmur, No Gallop, Normal Peripheral Pulses, Regular Rate/Rhythm Breast Exam: Deferred Gastrointestinal: Epigastric (tenderness), No Organomegaly, No Pulsatile Mass, Normal Bowel Sounds, Soft, Tenderness (epigastric region ) Genitalia: Deferred Pelvic: Deferred Rectal: Deferred Extremities: No calf tenderness, Normal capillary refill, Normal inspection, Normal range of motion, Non-tender, No pedal edema Musculoskeletal : Apperance: Normal Neurologic: Alert, guide travel II-XII nml as Tested, No Motor Deficits, Normal Affect, Normal Mood, No Sensory Deficits Cerebellar Function: Normal Reflexes: Normal Skin: Dry, Normal Color, Warm Lymphatic: No Adenopathy Was a procedure done? Was a procedure done?: No Differential Dx Considerations may include: gastritis, gastroenteritis, PUD, GERD, cholecystitis, cholelithiasis, among others X-Ray, Labs, Meds, VS Vital Signs Date Time Temp Pulse Resp B/P (MAP) Pulse Ox O2 Delivery O2 Flow Rate FiO2 12/10/24 00:04 98.0 93 18 157/99 (118) 97 98.0 12/10/24 00:04 Room Air* 0 21 12/09/24 23:30 98.5 97 20 149/94 (112) 98 98.5 Lab Test 12/10/24 01:30 12/09/24 22:36 Range/Units Urine Color Light-yellow Yellow Urine Clarity Clear Clear Urine pH 5.5 5.0-9.0 Urine Specific [place] 1.013 1.001-1.035 Urine Protein Negative Negative Urine Ketones Negative Negative Urine Blood Negative Negative /uL Urine Nitrite Negative Negative Urine Bilirubin Negative Negative Urine Urobilinogen Normal Negative mg/dL Urine Leukocyte Esterase Negative Negative /uL Urine RBC 1 0 - 3 /hpf Urine Microscopic WBC < 1 0-3 /HPF Urine Squamous Epithelial Cells None seen <5 /hpf Urine Bacteria None Seen /hpf Urine Mucus Few None Seen Urine Glucose Normal Normal mg/dL White Blood Count 7.1 4.4-10.8 10^3/uL Red Blood Count 4.81 4.5-5.90 10^6/uL Hemoglobin 14.9 13.5-17.5 g/dL Hematocrit 44.3 41.0-53.0 % Mean Corpuscular Volume 92.0 80.0-100.0 fL Mean Corpuscular Hemoglobin 30.9 28.0-32.0 pg Mean Corpuscular Hemoglobin Concent 33.6 32.0-36.0 g/dL Red Cell Distribution Width 12.9 11.8-14.3 % Platelet Count 198 140-450 10^3/uL Mean Platelet Volume 8.5 6.9-10.8 fL Neutrophils (%) (Auto) 39.1 37.0-80.0 % Lymphocytes (%) (Auto) 41.2 10.0-50.0 % Monocytes (%) (Auto) 13.6 H 0.0-12.0 % Eosinophils (%) (Auto) 4.8 0.0-7.0 % Basophils (%) (Auto) 1.3 0.0-2.0 % Neutrophils # (Auto) 2.8 1.6-8.6 10 ^3/uL Lymphocytes # (Auto) 2.9 0.4-5.4 10 ^3/uL Monocytes # (Auto) 1.0 0-1.3 10 ^3/uL Eosinophils # (Auto) 0.3 0-0.8 10 ^3/uL Basophils # (Auto) 0.1 0-0.2 10 ^3/uL Nucleated Red Blood Cells 0.1 % Sodium Level 137 136-145 mmol/L Potassium Level 3.9 3.5-5.1 mmol/L Chloride Level 106 98-107 mmol/L Carbon Dioxide Level 24 20-31 mmol/L Anion Gap 7 5-15 Blood Urea Nitrogen 10 9-23 mg/dL Creatinine 1.00 0.700-1.30 mg/dL Glomerular Filtration Rate Calc 101 >90 mL/min BUN/Creatinine Ratio 10.0 10.0-20.0 Serum Glucose 93 74-106 mg/dL Calcium Level 9.3 8.7-10.4 mg/dL Total Bilirubin 0.4 0.2-1.0 mg/dL Aspartate Amino Transferase (AST) 46 H 13-40 U/L Alanine Aminotransferase (ALT) 54 H 7-40 U/L Alkaline Phosphatase 80 46-116 U/L Total Protein 7.4 5.7-8.2 g/dL Albumin 4.9 H 3.2-4.8 g/dL Lipase 99 H 12-53 U/L Current Medications Medications (Trade) Dose Ordered Sig/Martinez Route Start Time Stop Time Status Last Admin Ondansetron HCl (Zofran Po) 8 mg ONCE ONCE PO 12/09/24 23:45 12/09/24 23:46 DC 12/10/24 00:05 Al Hydrox/Mg Hydrox/Simethicone (Maalox Plus) 30 ml ONCE ONCE PO 12/09/24 23:45 12/09/24 23:46 DC 12/10/24 00:04 Acetaminophen/ Hydrocodone Bitart ([place] 10/325MG Tab) 1 tab ONCE ONCE PO 12/09/24 23:45 12/09/24 23:46 DC 12/10/24 00:04 Time of 1ST Reevaluation: 00:00 Reevaluation 1ST: Unchanged Patient Education/Counseling: Diagnosis, Treatment Family Education/Counseling: Diagnosis, Treatment Departure 1 Departure Time of Disposition: 01:57 Impression: Primary Impression: Dental abscess Additional Impression: Pancreatitis Disposition: 01 HOME / SELF CARE / HOMELESS Condition: Stable e-Prescriptions Famotidine (PEPCID TABLET) 20 Mg Tb 1 TAB PO BID PRN, #60 TAB 5 Refills Prov: JESSICA NGUYEN MD 12/10/24 Gabapentin (Once-Daily) (Gabapentin) 300 Mg Tab 300 MG PO Q6HP PRN, #60 TAB Prov: JESSICA NGUYEN MD 12/10/24 Amoxicillin Trihydrate (Amoxicillin) 500 Mg Cap 1 CAP PO TID for 10 Days, #30 CAP Prov: JESSICA NGUYEN MD 12/10/24 Discharged With: Self Critical Care Note Critical Care Time?: No Stability Stability form required: No Heart Score Heart Score: Heart Score Response (Comments) Value History N/A 0 EKG N/A 0 Age N/A 0 Risk Factors N/A 0 Troponin N/A 0 Total 0 I personally scribed for JESSICA NGUYEN MD ([email or web address]) on 12/10/24 at 00:33. Electronically submitted by Uriah Leary [email or web address]). JESSICA NGUYEN MD Dec 10, 2024 00:33
--- NOTE | 2024-12-10 01:15 | DVH ---
RIGHT UPPER QUADRANT ABDOMINAL ULTRASOUND CLINICAL HISTORY: RUQ pain COMPARISON: None TECHNIQUE: Grayscale and color Doppler ultrasound imaging of the right upper quadrant is performed. FINDINGS: Pancreas: Visualized portions appear grossly unremarkable. Liver: Measures approximately 17.5 cm in length. Increased parenchymal echogenicity. No discrete hep atic lesions as visualized. The portal vein appears patent. Gallbladder: No sizable, shadowing calculi. No gallbladder wall thickening. No sonographic david's s ign elicited. Common bile duct: Nondilated. Right Kidney: Measures 8.2 cm in length. No hydronephrosis. Right upper quadrant Inferior vena cava: Visualized portions appear grossly patent. IMPRESSION: Hepatomegaly with hepatic steatosis. No sonographic evidence of cholelithiasis or cholecystitis at this time. HS:Y
[2024-12-10] MEDS ORDERED: GABA300T4 PO (01:34)
[2024-12-10] MEDS ORDERED: AMOX500C2 PO (01:34)
[2024-12-10] MEDS ORDERED: FAMO20TA10 PO (01:34)
[2024-12-10 02:18] LABS: Urine Blood Negative /uL (Negative); Urine Clarity Clear (Clear); Urine Color Light-Yellow (Yellow); Urine Mucus FEW (None Seen); Urine Protein, UAD Negative (Negative); Urine Specific Gravity 1.013 (1.001-1.035); Urine Squamous Epithelial Cell None Seen /hpf (<5); Urine Urobilinogen Normal (Negative); Urine WBC < 1 /HPF (0-3); Urine pH 5.5 (5.0-9.0)
== END 2024-12-10 02:18 | disposition home or self-care (01) ==
LOC: ER 22:22
DX: K04.7 Periapical abscess without sinus (principal); K85.90 Acute pancreatitis without necrosis or infection, unspecified; F17.210 Nicotine dependence, cigarettes, uncomplicated; F10.90 Alcohol use, unspecified, uncomplicated; F19.90 Other psychoactive substance use, unspecified, uncomplicated; J45.909 Unspecified asthma, uncomplicated; Z79.51 Long term (current) use of inhaled steroids; Z79.899 Other long term (current) drug therapy; Z87.19 Personal history of other diseases of the digestive system; Z88.5 Allergy status to narcotic agent; Z88.6 Allergy status to analgesic agent; Z88.1 Allergy status to other antibiotic agents; Y90.9 Presence of alcohol in blood, level not specified
CPT/HCPCS: 36415; 76705; 80053; 81001; 83690; 85025; 99284; Q0162

== ENCOUNTER 2025-02-28 00:08 | Emergency (ER) | payer MEDICAID ==
[~2025-02-28] VITALS: Ht 160 cm; Wt 75.3 kg
[~2025-02-28 00:08] MED LIST changes: +AMOX500C2 PO; +FAMO20TA10 PO; +GABA300T4 PO
--- NOTE | 2025-02-28 00:45 | ECG ---
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
[2025-02-28 00:55] LABS: Hematocrit 41.9 % (41.0-53.0); Hemoglobin 14.0 g/dL (13.5-17.5); Mean Corpuscular Hemoglobin 31.0 pg (28.0-32.0); Mean Corpuscular Volume 92.5 fL (80.0-100.0); Nucleated Red Blood Cells % 0.1 %
[2025-02-28 01:16] LABS: Albumin 4.7 g/dL (3.2-4.8); Alkaline Phosphatase 85 U/L (46-116); Anion Gap 12 (5-15); BUN/Creatinine Ratio 10.6 (10.0-20.0); Blood Urea Nitrogen 11 mg/dL (9-23); Calcium 9.4 mg/dL (8.7-10.4); Carbon Dioxide 24 mmol/L (20-31); Potassium 3.6 mmol/L (3.5-5.1); Sodium 144 mmol/L (136-145); Total Protein 7.3 g/dL (5.7-8.2)
[2025-02-28 01:25] LABS: Alanine Aminotransferase 44 U/L (7-40); Bilirubin, Total 0.3 mg/dL (0.2-1.0); Chloride 108 mmol/L (98-107); Glucose 119 mg/dL (74-106)
[2025-02-28 02:10] VITALS: BP 138/92; PULSE 105; RESP 20; TEMP 98.1; O2SAT 97
--- NOTE | 2025-02-28 02:36 | DVH ---
CHEST RADIOGRAPH Indication: chest pain Technique: 2 views Comparison: None FINDINGS: Lines and Tubes: None Lungs: No focal consolidation. Pleura: No effusion or pneumothorax. Cardiomediastinal contours: Unremarkable. Other: No acute osseous abnormality. IMPRESSION: 1. No acute cardiopulmonary abnormality.
[2025-02-28] MEDS: HYDROcodone-ACET 5/325MG TAB PO ONE (03:20)
--- NOTE | 2025-02-28 03:26 | ED.PDOC ---
HPI Comments PT CAME TO THE ER WITH CC OF NON RADIATING RIGHT SIDED CHEST PAIN X3 DAYS. PT IS A&OX4 RR EVEN AND REGULAR NO DISTRESS NOTED AT THIS TIME. PT DENIES N/V/D. PT REPORTS SOB AND RIGHT SIDED UPPER ABDOMINAL PAIN Chief Complaint: Chest Pain Time Seen by MD: 00:42 Primary Care Provider: Kaia Reviewed Notes: Nurses Notes, Medications, Allergies Allergies: Coded Allergies: Cyclobenzaprine (Verified Allergy, Unknown, 01/22/18) Ibuprofen (Verified Allergy, Unknown, 01/22/18) Ketorolac Tromethamine (Verified Allergy, Unknown, 02/28/25) Tramadol (Verified Allergy, Unknown, 01/22/18) Home Meds Active Scripts Acetaminophen (Acetaminophen) 500 Mg Tab, 500 MG PO Q4HPRN, #30 TAB 0 Refills Prov:MILEY BERUMEN 03/04/25 Famotidine (PEPCID TABLET) 20 Mg Tb, 1 TAB PO BID PRN, #60 TAB 5 Refills Prov:JESSICA NGUYEN MD 12/10/24 Gabapentin (Once-Daily) (Gabapentin) 300 Mg Tab, 300 MG PO Q6HP PRN, #60 TAB Prov:JESSICA NGUYEN MD 12/10/24 Amoxicillin Trihydrate (Amoxicillin) 500 Mg Cap, 1 CAP PO TID for 10 Days, #30 CAP Prov:JESSICA NGUYEN MD 12/10/24 Ondansetron (Zofran) 4 Mg Tab, 4 MG PO Q6HPRN PRN, #30 MG Prov:LIONEL JAMESON DO 02/26/22 Pantoprazole Sodium Sesquihydr (Protonix) 40 Mg Tab, 40 MG PO DAILY, #30 TAB Prov:LIONEL JAMESON DO 02/26/22 Hydrocodone-Acetaminophen (Hydrocodone Bitartrate/AC 10-325 mg) 1 Tab Tab, 1 TAB PO Q6HPRN PRN, #30 TAB Prov:LIONEL JAMESON DO 02/26/22 Pantoprazole Sodium Sesquihydr (Pantoprazole Sodium) 40 Mg Tab, 40 MG PO DAILY, #30 TAB 1 Refill Prov:DEISY QIU MD 08/01/18 Reported Medications Beclomethasone Dipropionate (Qvar Redihaler) 80 Mcg/Act Aer, 80 MCG IN, AER 07/31/18 Albuterol Sulfate (VENTOLIN MDI) 90 Mcg Ih, 90 MCG IN 07/31/18 Hydrocodone-Acetaminophen ([place] 10-325 mg) 1 Tab Tab, 1 TAB PO Q6HP PRN for MODERATE PAIN, TAB 07/31/18 Mode of Arrival: Ambulatory Past Medical History PAST MEDICAL HISTORY: Asthma Surgical History: Denies all surgeries Family History Family History: Reviewed,noncontributory to illness Social History Smoker: Cigarettes, Less Than 1 Pack/Day Alcohol: Occasionally Drugs: Marijuana Lives In: Home All Other Systems: Reviewed and Negative (see hpi) Physical Exam General Appearance: No Apparent Distress, Normal HEENT: Normal ENT Inspection, Pharynx Normal, TMs Normal Neck: Full Range of Motion, Non-Tender, Normal, Normal Inspection Respiratory: Chest Non-Tender, Lungs Clear, No Accessory Muscle Use, No Respiratory Distress, Normal Breath Sounds Cardiovascular: No Edema, No JVD, No Murmur, No Gallop, Normal Peripheral Pulses, Regular Rate/Rhythm Breast Exam: Deferred Gastrointestinal: No Organomegaly, Non Tender, No Pulsatile Mass, Normal Bowel Sounds, Soft Genitalia: Deferred Pelvic: Deferred Rectal: Deferred Extremities: No calf tenderness, Normal capillary refill, Normal inspection, Normal range of motion, Non-tender, No pedal edema Musculoskeletal : Apperance: Normal Neurologic: Alert, county extension agent II-XII nml as Tested, No Motor Deficits, Normal Affect, Normal Mood, No Sensory Deficits Cerebellar Function: Normal Reflexes: Normal Skin: Dry, Normal Color, Warm Lymphatic: No Adenopathy Was a procedure done? Was a procedure done?: No CP Differential Dx Differential Diagnosis: Angina, NM, PAC's, PSVT, PVC's Differential Diagnosis: Esophageal reflux/spasm, Gastritis, Myocardial Infarction, Pericarditis, Pneumonia, Pneumothorax, Pulmonary Embolus X-Ray, Labs, Meds, VS Vital Signs Date Time Temp Pulse Resp B/P (MAP) Pulse Ox O2 Delivery O2 Flow Rate FiO2 02/28/25 02:10 98.1 105 20 138/92 (107) 97 98.1 02/28/25 02:10 105 20 97 Room Air 02/28/25 00:22 99 02/28/25 00:13 98.2 104 18 138/84 95 98.2 Lab Test 02/28/25 01:45 02/28/25 00:24 Range/Units Troponin I High Sensitivity 6 6 </=54 ng/L White Blood Count 6.4 4.4-10.8 10^3/uL Red Blood Count 4.53 4.5-5.90 10^6/uL Hemoglobin 14.0 13.5-17.5 g/dL Hematocrit 41.9 41.0-53.0 % Mean Corpuscular Volume 92.5 80.0-100.0 fL Mean Corpuscular Hemoglobin 31.0 28.0-32.0 pg Mean Corpuscular Hemoglobin Concent 33.5 32.0-36.0 g/dL Red Cell Distribution Width 13.2 11.8-14.3 % Platelet Count 180 140-450 10^3/uL Mean Platelet Volume 8.6 6.9-10.8 fL Neutrophils (%) (Auto) 38.2 37.0-80.0 % Lymphocytes (%) (Auto) 47.4 10.0-50.0 % Monocytes (%) (Auto) 9.1 0.0-12.0 % Eosinophils (%) (Auto) 4.1 0.0-7.0 % Basophils (%) (Auto) 1.2 0.0-2.0 % Neutrophils # (Auto) 2.5 1.6-8.6 10 ^3/uL Lymphocytes # (Auto) 3.1 0.4-5.4 10 ^3/uL Monocytes # (Auto) 0.6 0-1.3 10 ^3/uL Eosinophils # (Auto) 0.3 0-0.8 10 ^3/uL Basophils # (Auto) 0.1 0-0.2 10 ^3/uL Nucleated Red Blood Cells 0.1 % Sodium Level 144 136-145 mmol/L Potassium Level 3.6 3.5-5.1 mmol/L Chloride Level 108 H 98-107 mmol/L Carbon Dioxide Level 24 20-31 mmol/L Anion Gap 12 5-15 Blood Urea Nitrogen 11 9-23 mg/dL Creatinine 1.04 0.700-1.30 mg/dL Glomerular Filtration Rate Calc 96 >90 mL/min BUN/Creatinine Ratio 10.6 10.0-20.0 Serum Glucose 119 H 74-106 mg/dL Calcium Level 9.4 8.7-10.4 mg/dL Total Bilirubin 0.3 0.2-1.0 mg/dL Aspartate Amino Transferase (AST) 38 13-40 U/L Alanine Aminotransferase (ALT) 44 H 7-40 U/L Alkaline Phosphatase 85 46-116 U/L Total Protein 7.3 5.7-8.2 g/dL Albumin 4.7 3.2-4.8 g/dL X-Ray, Labs, Meds, VS Comment CBC, CMP troponins negative x2 chest x-ray shows no acute cardiopulmonary find ings. Advised to rest increase p.o. fluids with electrolytes [id number] Tylenol or Motrin as needed for the pain per labeled dosing instructions. Follow up with your PCP in 2-3 days for re-evaluation ER return precautions given patient indicates understanding and agrees with discharge plan of care. Time of 1ST Reevaluation: 00:45 Reevaluation 1ST: Unchanged Time of 2ND Reevaluation: 03:22 Reevaluation 2ND: Improved Patient Education/Counseling: Diagnosis, Treatment, Prognosis, Need For Follow Up Family Education/Counseling: No Family Present SEPSIS Sepsis Screen Date sepsis recognized/suspect: Feb 28, 2025 Time Sepsis recognized/suspect: 0016 Recent Procedure: No On Antibiotic Therapy: No Respiratory Rate >20: No Heart Rate >90: Yes Temp<36 C (96.8 F) or >38.3 C: No SBP <90 or MAP <65 mmHG: No New Acute Mental Status Change: No Is the patient on CPAP, BIPAP,: No Physician Orders Electrocardigram (02/28/25 00:42) Chest Two Views Routine (02/28/25 00:42) Vital Signs Date Time Temp Pulse Resp B/P (MAP) Pulse Ox O2 Delivery O2 Flow Rate FiO2 02/28/25 02:10 98.1 105 20 138/92 (107) 97 98.1 02/28/25 02:10 105 20 97 Room Air 02/28/25 00:22 99 02/28/25 00:13 98.2 104 18 138/84 95 98.2 Laboratory Tests Test 02/28/25 00:24 White Blood Count 6.4 10^3/uL (4.4-10.8) Departure 1 Departure Time of Disposition: 03:26 Impression: Primary Impression: Chest pain Qualified Codes: R07.9 - Chest pain, unspecified Disposition: 01 HOME / SELF CARE / HOMELESS Condition: Stable Discharged With: Self Critical Care Note Critical Care Time?: No Stability Stability form required: No Heart Score Heart Score: Heart Score Response (Comments) Value History Slightly Suspicious 0 EKG Normal 0 Age <45 0 Risk Factors 1 or 2 risk factors 1 Troponin 1-2 x's Normal limit 1 Total 2 MAURA REYEZ Feb 28, 2025 03:26
== END 2025-02-28 03:52 | disposition home or self-care (01) ==
LOC: ER 00:14
DX: R07.89 Other chest pain (principal); F17.210 Nicotine dependence, cigarettes, uncomplicated; F12.90 Cannabis use, unspecified, uncomplicated; F10.90 Alcohol use, unspecified, uncomplicated; Z79.899 Other long term (current) drug therapy; Z79.51 Long term (current) use of inhaled steroids; Z88.5 Allergy status to narcotic agent; Z88.6 Allergy status to analgesic agent; Y90.9 Presence of alcohol in blood, level not specified
CPT/HCPCS: 36415; 71046; 80053; 84484; 85025; 93005

== ENCOUNTER 2025-03-03 23:37 | Emergency (ER) | payer MEDICAID ==
[~2025-03-03] VITALS: Ht 157.5 cm; Wt 76.7 kg
[2025-03-03 23:39] VITALS: BP 134/92; PULSE 89; RESP 18; TEMP 97.8; O2SAT 94
[2025-03-04] MEDS ORDERED: ACET500T58 PO (03:16)
--- NOTE | 2025-03-04 03:17 | ED.PDOC ---
Back pain HPI HPI Comments 34 year old male presents to ER with complaints of back pain x 2 days. Patients with PMH significant for chronic lumbar back pain states he started experiencing worsening lower lumbar back pain two days ago. Denies any trauma/falls. He rates his current pain an 8/10 diffuse to lower lumbar spine without radiation. States he did take Tylenol for his pain with slight relief. Patient presents to ER ambulatory on arrival, with steady gait, in no distress. Denies fever, body aches, chills, night sweats, extremity weakness, nausea/vomiting, shortness of breath, chest pain, abdominal/pelvic pain, changes in urination/BM or any further symptoms/complaints Chief Complaint: Back Pain Time Seen by MD: 23:50 Primary Care Provider: Kaia Reviewed Notes: Nurses Notes, Medications, Allergies Allergies: Coded Allergies: Cyclobenzaprine (Verified Allergy, Unknown, 01/22/18) Ibuprofen (Verified Allergy, Unknown, 01/22/18) Ketorolac Tromethamine (Verified Allergy, Unknown, 02/28/25) Tramadol (Verified Allergy, Unknown, 01/22/18) Home Meds Active Scripts Acetaminophen (Acetaminophen) 500 Mg Tab, 500 MG PO Q4HPRN, #30 TAB 0 Refills Prov:MILEY BERUMEN 03/04/25 Famotidine (PEPCID TABLET) 20 Mg Tb, 1 TAB PO BID PRN, #60 TAB 5 Refills Prov:JESSICA NGUYEN MD 12/10/24 Gabapentin (Once-Daily) (Gabapentin) 300 Mg Tab, 300 MG PO Q6HP PRN, #60 TAB Prov:JESSICA NGUYNE MD 12/10/24 Amoxicillin Trihydrate (Amoxicillin) 500 Mg Cap, 1 CAP PO TID for 10 Days, #30 CAP Prov:JESSICA NGUYEN MD 12/10/24 Ondansetron (Zofran) 4 Mg Tab, 4 MG PO Q6HPRN PRN, #30 MG Prov:LIONEL JAMESON DO 02/26/22 Pantoprazole Sodium Sesquihydr (Protonix) 40 Mg Tab, 40 MG PO DAILY, #30 TAB Prov:LIONEL JAMESON DO 02/26/22 Hydrocodone-Acetaminophen (Hydrocodone Bitartrate/AC 10-325 mg) 1 Tab Tab, 1 TAB PO Q6HPRN PRN, #30 TAB Prov:LIONEL JAMESON DO 02/26/22 Pantoprazole Sodium Sesquihydr (Pantoprazole Sodium) 40 Mg Tab, 40 MG PO DAILY, #30 TAB 1 Refill Prov:DEISY QIU MD 08/01/18 Reported Medications Beclomethasone Dipropionate (Qvar Redihaler) 80 Mcg/Act Aer, 80 MCG IN, AER 07/31/18 Albuterol Sulfate (VENTOLIN MDI) 90 Mcg Ih, 90 MCG IN 07/31/18 Hydrocodone-Acetaminophen ([place] 10-325 mg) 1 Tab Tab, 1 TAB PO Q6HP PRN for MODERATE PAIN, TAB 07/31/18 Information Source: Patient Mode of Arrival: Ambulatory Past Medical History PAST MEDICAL HISTORY: Asthma Surgical History: Denies all surgeries Family History Family History: Unknown Social History Smoker: Cigarettes, Less Than 1 Pack/Day Alcohol: Occasionally Drugs: Marijuana Lives In: Home Constitutional: denies: chills, diaphoresis, fatigue, fever, malaise, sweats, weakness, others EENTM: denies: blurred vision, double vision, ear bleeding, ear discharge, ear drainage, ear pain, ear ringing, eye pain, eye redness, hearing loss, mouth pain, mouth swelling, nasal discharge, nose bleeding, nose congestion, nose pain, photophobia, tearing, throat pain, throat swelling, voice changes, others Respiratory: denies: cough, hemoptysis, orthopnea, SOB at rest, shortness of breath, SOB with excertion, stridor, wheezing, others Cardiovascular: denies: chest pain, dizzy spells, diaphoresis, Dyspnea on exertion, edema, irregular heart beat, left arm pain, lightheadedness, palpitations, PND, syncope, others Gastrointestinal: denies: abdomen distended, abdominal pain, blood streaked bowels, constipated, diarrhea, dysphagia, difficulty swallowing, hematemesis, melena, nausea, poor appetite, poor fluid intake, rectal bleeding, rectal pain, vomiting, others Genitourinary: denies: burning, dysuria, flank pain, frequency, hematuria, incontinence, penile discharge, penile sore, pain, testicle pain, testicle swelling, urgency, others Neurological: denies: dizziness, fainting, headache, left sided numbness, left sided weakness, numbness, paresthesia, pre-existing deficit, right sided numbness, right sided weakness, seizure, speech problems, tingling, tremors, weakness, others Musculoskeletal: reports: others (As stated in HPI) Integumetry: denies: bruises, change in color, change in hair/nails, dryness, laceration, lesions, lumps, rash, wounds, others Allergic/Immunocompromised: denies: Difficulty Healing, Frequent Infections, Hives, Itching, others Hematologic/Lymphatic: denies: anemia, blood clots, easy bleeding, easy bruising, swollen glands, others Endocrine: denies: excessive hunger, excessive sweating, excessive thirst, excessive urination, flushing, intolerance to cold, intolerance to heat, unexplained weight gain, unexplained weight loss, others Psychiatric: denies: anxiety, bipolar disorder, depression, hopeless, panic disorder, schizophrenia, sleepless, suicidal, others Physical Exam General Appearance: No Apparent Distress HEENT: PERRL/EOMI Neck: Full Range of Motion, Non-Tender, Normal Respiratory: Chest Non-Tender, Lungs Clear, No Accessory Muscle Use, No Respiratory Distress, Normal Breath Sounds Cardiovascular: No Murmur, No Gallop, Regular Rate/Rhythm Breast Exam: Deferred Gastrointestinal: Non Tender, No Pulsatile Mass, Soft Genitalia: Deferred Pelvic: Deferred Rectal: Deferred Extremities: Normal capillary refill, Normal range of motion Musculoskeletal : Extremity Location: Back (TTP to bilateral lower lumbar paraspinals noted. No skin changes noted. No bony tenderness to spine appreciated. Pulses intact. 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 Was a procedure done?: No Sedation Sedation?: No Back Pain Differential Dx Differential Diagnosis: AAA, Fracture, Urinary Tract Infection, Other (Neurovascular injury) X-Ray, Labs, Meds, VS Vital Signs Date Time Temp Pulse Resp B/P (MAP) Pulse Ox O2 Delivery O2 Flow Rate FiO2 03/03/25 23:39 97.8 89 18 134/92 94 97.8 Tylenol 650 mg p.o. ordered Patient neurovascularly intact and reported improvement in symptoms prior to [place] Advised to follow up with PCP and pain management in 1-2 days Patient verbalized understanding and agreeable with current plan of care Advised to return to ER immediately if symptoms worsen Time of 1ST Reevaluation: 02:54 Reevaluation 1ST: N/A Patient Education/Counseling: Diagnosis, Treatment, Prognosis, Need For Follow Up Family Education/Counseling: No Family Present SEPSIS Sepsis Screen Date sepsis recognized/suspect: Mar 03, 2025 Time Sepsis recognized/suspect: 2341 Recent Procedure: No On Antibiotic Therapy: No Respiratory Rate >20: No Heart Rate >90: No Temp<36 C (96.8 F) or >38.3 C: No SBP <90 or MAP <65 mmHG: No New Acute Mental Status Change: No Is the patient on CPAP, BIPAP,: No Physician Orders Acetaminophen Tablet (Tylenol Tablet) (03/04/25 03:30) Vital Signs Date Time Temp Pulse Resp B/P (MAP) Pulse Ox O2 Delivery O2 Flow Rate FiO2 03/03/25 23:39 97.8 89 18 134/92 94 97.8 Departure 1 Departure Time of Disposition: 03:12 Impression: Primary Impression: Lumbar strain Qualified Codes: S39.012A - Strain of muscle, fascia and tendon of lower back, initial encounter Disposition: HOME / SELF CARE / HOMELESS Condition: Stable e-Prescriptions Acetaminophen (Acetaminophen) 500 Mg Tab 500 MG PO Q4HPRN, #30 TAB 0 Refills Prov: MILEY BERUMEN 03/04/25 Discharged With: Self Critical Care Note Critical Care Time?: No Stability Stability form required: No Heart Score Heart Score: Heart Score Response (Comments) Value History N/A 0 EKG N/A 0 Age N/A 0 Risk Factors N/A 0 Troponin N/A 0 Total 0 MILEY BERUMEN Mar 04, 2025 03:16
[2025-03-04] MEDS ORDERED: ACETAMINOPHEN 325 MG TAB PO ONE (03:30)
== END 2025-03-04 03:27 | disposition home or self-care (01) ==
LOC: ER 23:40
DX: S39.012A Strain of muscle, fascia and tendon of lower back, initial encounter (principal); G89.29 Other chronic pain; J45.909 Unspecified asthma, uncomplicated; Z88.6 Allergy status to analgesic agent; Z88.5 Allergy status to narcotic agent; Z79.899 Other long term (current) drug therapy; F17.210 Nicotine dependence, cigarettes, uncomplicated; X58.XXXA Exposure to other specified factors, initial encounter; Y93.89 Activity, other specified; Y92.89 Other specified places as the place of occurrence of the external cause; Y99.8 Other external cause status

== ENCOUNTER 2025-03-11 22:32 | Emergency (ER) | payer MEDICAID ==
[~2025-03-11] VITALS: Ht 160 cm; Wt 76.7 kg
[~2025-03-11 22:32] MED LIST changes: +ACET500T58 PO
--- NOTE | 2025-03-12 00:44 | ED.PDOC ---
HPI Comments 34-year-old male with a history of bipolar disorder now presents with a complaint of chest pain. Patient seen frequently in the emergency department. Patient has no pain or complaints now. Patient is a bit somnolent Chief Complaint: Chest Pain Time Seen by MD: 23:05 Primary Care Provider: Kaia Allergies: Coded Allergies: Cyclobenzaprine (Verified Allergy, Unknown, 01/22/18) Ibuprofen (Verified Allergy, Unknown, 01/22/18) Ketorolac Tromethamine (Verified Allergy, Unknown, 02/28/25) Tramadol (Verified Allergy, Unknown, 01/22/18) Home Meds Active Scripts Acetaminophen (Acetaminophen) 500 Mg Tab, 500 MG PO Q4HPRN, #30 TAB 0 Refills Prov:MILEY BERUMEN 03/04/25 Famotidine (PEPCID TABLET) 20 Mg Tb, 1 TAB PO BID PRN, #60 TAB 5 Refills Prov:JESSICA NGUYEN MD 12/10/24 Gabapentin (Once-Daily) (Gabapentin) 300 Mg Tab, 300 MG PO Q6HP PRN, #60 TAB Prov:JESSICA NGUYEN MD 12/10/24 Amoxicillin Trihydrate (Amoxicillin) 500 Mg Cap, 1 CAP PO TID for 10 Days, #30 CAP Prov:JESSICA NGUYEN MD 12/10/24 Ondansetron (Zofran) 4 Mg Tab, 4 MG PO Q6HPRN PRN, #30 MG Prov:LIONEL JAMESON DO 02/26/22 Pantoprazole Sodium Sesquihydr (Protonix) 40 Mg Tab, 40 MG PO DAILY, #30 TAB Prov:LIONEL JAMESON DO 02/26/22 Hydrocodone-Acetaminophen (Hydrocodone Bitartrate/AC 10-325 mg) 1 Tab Tab, 1 TAB PO Q6HPRN PRN, #30 TAB Prov:LIONEL JAMESON DO 02/26/22 Pantoprazole Sodium Sesquihydr (Pantoprazole Sodium) 40 Mg Tab, 40 MG PO DAILY, #30 TAB 1 Refill Prov:DEISY QIU MD 08/01/18 Reported Medications Beclomethasone Dipropionate (Qvar Redihaler) 80 Mcg/Act Aer, 80 MCG IN, AER 07/31/18 Albuterol Sulfate (VENTOLIN MDI) 90 Mcg Ih, 90 MCG IN 07/31/18 Hydrocodone-Acetaminophen ([place] 10-325 mg) 1 Tab Tab, 1 TAB PO Q6HP PRN for MODERATE PAIN, TAB 07/31/18 Information Source: Patient Mode of Arrival: Ambulatory Severity: Mild Timing: Days Duration: Since onset Past Medical History PAST MEDICAL HISTORY: Asthma Past Medical History (Other): bipolar Surgical History: Denies all surgeries Family History Family History: Unknown Social History Smoker: Cigarettes, Less Than 1 Pack/Day Alcohol: Rarely, Occasionally Drugs: Marijuana Lives In: Home Constitutional: reports: fatigue All Other Systems: Reviewed and Negative Physical Exam General Appearance: No Apparent Distress, Normal HEENT: Normal ENT Inspection, Pharynx Normal, TMs Normal Neck: Full Range of Motion, Non-Tender, Normal, Normal Inspection Respiratory: Chest Non-Tender, Lungs Clear, No Accessory Muscle Use, No Respiratory Distress, Normal Breath Sounds Cardiovascular: No Edema, No JVD, No Murmur, No Gallop, Normal Peripheral Pulses, Regular Rate/Rhythm Breast Exam: Deferred Gastrointestinal: No Organomegaly, Non Tender, No Pulsatile Mass, Normal Bowel Sounds, Soft Genitalia: Deferred Pelvic: Deferred Rectal: Deferred Extremities: No calf tenderness, Normal capillary refill, Normal inspection, Normal range of motion, Non-tender, No pedal edema Musculoskeletal : Apperance: Normal 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 Was a procedure done?: No CP Differential Dx Differential Diagnosis: A-fib, A-Flutter, Angina, RI, V-Fib, V-Tach, WPW, Other X-Ray, Labs, Meds, VS Vital Signs Date Time Temp Pulse Resp B/P (MAP) Pulse Ox O2 Delivery O2 Flow Rate FiO2 03/11/25 22:40 92 03/11/25 22:35 97.8 98 17 118/87 99 97.8 Lab Test 03/11/25 23:32 03/11/25 22:46 Range/Units Troponin I High Sensitivity < 3 L < 3 L </=54 ng/L Time of 1ST Reevaluation: 00:43 Reevaluation 1ST: Improved Patient Education/Counseling: Diagnosis, Treatment Family Education/Counseling: No Family Present SEPSIS Sepsis Screen Date sepsis recognized/suspect: Mar 11, 2025 Time Sepsis recognized/suspect: 2239 Recent Procedure: No On Antibiotic Therapy: No Respiratory Rate >20: No Heart Rate >90: No Temp<36 C (96.8 F) or >38.3 C: No SBP <90 or MAP <65 mmHG: No New Acute Mental Status Change: No Is the patient on CPAP, BIPAP,: No Physician Orders Electrocardigram (03/11/25 22:37) Electrocardigram (03/11/25 23:37) Electrocardigram (03/12/25 01:37) Vital Signs Date Time Temp Pulse Resp B/P (MAP) Pulse Ox O2 Delivery O2 Flow Rate FiO2 03/11/25 22:40 92 03/11/25 22:35 97.8 98 17 118/87 99 97.8 Departure 1 Departure Time of Disposition: 00:43 Impression: Primary Impression: Atypical chest pain Disposition: 01 HOME / SELF CARE / HOMELESS Admit to: Med Surg Condition: Guarded Discharged With: Self Critical Care Note Critical Care Time?: No Stability Stability form required: No Heart Score Heart Score: Heart Score Response (Comments) Value History Slightly Suspicious 0 EKG Normal 0 Age <45 0 Risk Factors No known risk factors 0 Troponin Normal limit 0 Total 0 JESSICA NGUYEN MD Mar 12, 2025 00:44
[2025-03-12 03:56] VITALS: BP 128/80; TEMP 98.1
[2025-03-12 03:57] VITALS: PULSE 85; RESP 18; O2SAT 96
--- NOTE | 2025-03-12 06:45 | ECG ---
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
== END 2025-03-12 04:05 | disposition home or self-care (01) ==
LOC: ER 22:32
DX: R07.89 Other chest pain (principal); F17.210 Nicotine dependence, cigarettes, uncomplicated; Z88.6 Allergy status to analgesic agent; Z88.5 Allergy status to narcotic agent; Z79.899 Other long term (current) drug therapy
CPT/HCPCS: 36415; 84484; 93005

== ENCOUNTER 2025-03-16 22:49 | Inpatient (IN) | payer MEDICAID ==
[~2025-03-16] VITALS: Ht 160 cm; Wt 76.1 kg
[2025-03-17] VITALS (9 sets, daily range): BP systolic 137–145; BP diastolic 90–96; PULSE 82–102; RESP 16–20; TEMP 97.1–98.6; O2SAT 96–100
--- NOTE | 2025-03-17 00:20 | ECG ---
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
--- NOTE | 2025-03-17 00:20 | ECG ---
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
[2025-03-17 01:21] LABS: Hematocrit 42.0 % (41.0-53.0); Hemoglobin 14.4 g/dL (13.5-17.5); Mean Corpuscular Hemoglobin 31.6 pg (28.0-32.0); Mean Corpuscular Volume 92.0 fL (80.0-100.0); Nucleated Red Blood Cells % 0.2 %
[2025-03-17 01:29] LABS: Potassium 4.0 mmol/L (3.5-5.1); Sodium 140 mmol/L (136-145)
[2025-03-17 01:30] LABS: Anion Gap 7 (5-15); Calcium 9.0 mg/dL (8.7-10.4); Carbon Dioxide 24 mmol/L (20-31)
[2025-03-17 01:33] LABS: Chloride 109 mmol/L (98-107)
[2025-03-17 01:35] LABS: BUN/Creatinine Ratio 13.4 (10.0-20.0); Blood Urea Nitrogen 13 mg/dL (9-23); Glucose 100 mg/dL (74-106)
--- NOTE | 2025-03-17 03:04 | ED.PDOC ---
HPI Comments HPI: Poor Historian. 34-year-old male presents to emergency depart for evaluation of left-sided chest pain. He said that the pain fluctuates between left and right. Denies any radiculopathy. No particular alleviating or precipitating factors. Denies any other associated symptoms. Patient appears homeless. Patient states he I his multiple medical problems however he does not take any medicine for it. Patient used to follow with pain management for chronic back pain but has not seen his pain management doctor for few months. Past Medical History: Chronic pain syndrome follows with pain management, hypertension, hyperlipidemia, diabetes Past Surgical History: Denies any Patient admits to use of tobacco and alcohol. REVIEW OF SYSTEMS: CONSTITUTIONAL: Denies acute: fever, diaphoresis, chills, generalized weakness. HEAD: Denies acute: headache, photophobia Eyes: Denies acute: Double vision, vision loss, eye pain, eye discharge. EARS: Denies acute: tinnitus, hearing loss, ear discharge, ear pain, THROAT: Denies acute: sore throat, swelling, difficulty swallowing , pain with swallowing, change in voice. NECK: Denies acute: neck pain, neck swelling, stiff neck. HEART: Denies acute : palpitations, LUNGS: Denies acute: SOB, wheezing, cough, hemoptysis ABDOMEN: Denies acute: abdominal pain, Nausea, Vomiting, diarrhea, melena , hematemesis, hematochezia SKIN: Denies acute: rash, redness, lesions, itchiness. EXTREMITIES: Denies acute: calf pain, numbness, tingling, weakness, denies pain in extremity. Denies acute: Low back pain. Neuro: Denies acute: focal neurological deficit, motor or sensory focal neurological deficit, tremors, seizure like activity, confusion, dizziness, change in mental status, loss of bowel or bladder function, cauda equina like symptoms. : Denies acute: dysuria, hematuria, flank pain, increase in urinary frequency. PSYCH: Denies acute: hallucination, suicidal ideation, homicidal ideation. PHYSICAL EXAM: General: --no-----acute distress, awake and alert. Head: normocephalic, atraumatic. Neck: supple, trachea is midline, no swelling. Throat: Normal phonation. Eyes:, no erythema, no purulent discharge, no proptosis, no icterus. Heart: regular rate, regular rhythm, no significant murmur appreciated. Lungs: no apparent respiratory distress, Able to speak in full sentences. No wheezing, no rhonchi, no crackles. No stridors Clear to auscultation bilaterally. Abdomen: non tender to palpation, non distended, soft, no guarding, no rebound, + bowel sounds. Neuro: Awake, Alert, oriented to name, self, situation, follows commands GCS=15. Speech is normal. Skin: no petechia, no purpura, no cyanosis, non-pale, not jaundice. Lower extremities: --no - Pitting edema no deformity, no focal swelling, no calf TTP. Makes eye contact. moves all four extremities. Face: no apparent facial droop. Ambulating in the ED independently. ED COURSE: DISCLAIMER: This medical document was created using an electronic medical record system with voice recognition software and computerized dictation system. Although this document has been carefully reviewed, there might still be some phonetic and typographical errors. Occasional wrong-word or "sound-alike" substitutions may have occurred due to the inherent limitations of voice recognition software. These areas are purely typographical due to imperfections of the software programs and do not reflect any compromise in the patient's medical care. Please read the chart carefully and recognize, using context, where these substitutions have occurred. Chief Complaint: Chest Pain Time Seen by MD: 01:24 Primary Care Provider: Kaia Reviewed Notes: Allergies Allergies: Coded Allergies: Cyclobenzaprine (Verified Allergy, Unknown, 01/22/18) Ibuprofen (Verified Allergy, Unknown, 01/22/18) Ketorolac Tromethamine (Verified Allergy, Unknown, 02/28/25) Tramadol (Verified Allergy, Unknown, 01/22/18) Home Meds Active Scripts Acetaminophen (Acetaminophen) 500 Mg Tab, 500 MG PO Q4HPRN, #30 TAB 0 Refills Prov:MILEY BERUMEN 03/04/25 Famotidine (PEPCID TABLET) 20 Mg Tb, 1 TAB PO BID PRN, #60 TAB 5 Refills Prov:JESSICA NGUYEN MD 12/10/24 Gabapentin (Once-Daily) (Gabapentin) 300 Mg Tab, 300 MG PO Q6HP PRN, #60 TAB Prov:JESSICA NGUYEN MD 12/10/24 Amoxicillin Trihydrate (Amoxicillin) 500 Mg Cap, 1 CAP PO TID for 10 Days, #30 CAP Prov:JESSICA NGUYEN MD 12/10/24 Ondansetron (Zofran) 4 Mg Tab, 4 MG PO Q6HPRN PRN, #30 MG Prov:LIONEL JAMESON DO 02/26/22 Pantoprazole Sodium Sesquihydr (Protonix) 40 Mg Tab, 40 MG PO DAILY, #30 TAB Prov:LIONEL JAMESON DO 02/26/22 Hydrocodone-Acetaminophen (Hydrocodone Bitartrate/AC 10-325 mg) 1 Tab Tab, 1 TAB PO Q6HPRN PRN, #30 TAB Prov:LIONEL JAMESON DO 02/26/22 Pantoprazole Sodium Sesquihydr (Pantoprazole Sodium) 40 Mg Tab, 40 MG PO DAILY, #30 TAB 1 Refill Prov:DEISY QIU MD 08/01/18 Reported Medications Beclomethasone Dipropionate (Qvar Redihaler) 80 Mcg/Act Aer, 80 MCG IN, AER 07/31/18 Albuterol Sulfate (VENTOLIN MDI) 90 Mcg Ih, 90 MCG IN 07/31/18 Hydrocodone-Acetaminophen ([place] 10-325 mg) 1 Tab Tab, 1 TAB PO Q6HP PRN for M ODERATE PAIN, TAB 07/31/18 Information Source: Patient Mode of Arrival: Ambulatory Past Medical History PAST MEDICAL HISTORY: Asthma Surgical History: Denies all surgeries Family History Family History: Unknown Social History Smoker: Cigarettes, Less Than 1 Pack/Day Alcohol: Rarely, Occasionally Drugs: Marijuana Lives In: Home Was a procedure done? Was a procedure done?: No CP Differential Dx Differential Diagnosis: N/A Differential Diagnosis: Other (Ddx include but not limitied to gastritis, musculoskeletal pain, radiculopathy, atypical chest pain, dissection, aneurysm, ACS, unstable angina, hiatal hernia, GERD, anxiety, costochondritis, PE, pneumothroax, neoplasm, cardiac ischemia, drug abuse, anemia.) X-Ray, Labs, Meds, VS Vital Signs Date Time Temp Pulse Resp B/P (MAP) Pulse Ox O2 Delivery O2 Flow Rate FiO2 03/17/25 02:48 97.5 98 16 121/79 (93) 94 97.5 03/17/25 00:00 91 03/16/25 22:54 93 03/16/25 22:49 98.7 100 18 129/85 98 98.7 Lab Test 03/17/25 03:00 03/17/25 00:15 03/16/25 23:00 Range/Units Urine Opiates Screen Neg NEGATIVE Urine Fentanyl Screen Neg NEGATIVE Urine Barbiturates Screen Neg NEGATIVE Urine Phencyclidine Screen Neg NEGATIVE Urine Amphetamines Screen Neg NEGATIVE Urine Benzodiazepines Screen Neg NEGATIVE Urine Cocaine Screen Neg NEGATIVE Urine Cannabinoids Screen Pos NEGATIVE Troponin I High Sensitivity 6 6 </=54 ng/L White Blood Count 6.1 4.4-10.8 10^3/uL Red Blood Count 4.56 4.5-5.90 10^6/uL Hemoglobin 14.4 13.5-17.5 g/dL Hematocrit 42.0 41.0-53.0 % Mean Corpuscular Volume 92.0 80.0-100.0 fL Mean Corpuscular Hemoglobin 31.6 28.0-32.0 pg Mean Corpuscular Hemoglobin Concent 34.4 32.0-36.0 g/dL Red Cell Distribution Width 12.8 11.8-14.3 % Platelet Count 192 140-450 10^3/uL Mean Platelet Volume 10.2 6.9-10.8 fL Neutrophils (%) (Auto) 28.6 L 37.0-80.0 % Lymphocytes (%) (Auto) 54.4 H 10.0-50.0 % Monocytes (%) (Auto) 10.3 0.0-12.0 % Eosinophils (%) (Auto) 5.2 0.0-7.0 % Basophils (%) (Auto) 1.5 0.0-2.0 % Neutrophils # (Auto) 1.8 1.6-8.6 10 ^3/uL Lymphocytes # (Auto) 3.3 0.4-5.4 10 ^3/uL Monocytes # (Auto) 0.6 0-1.3 10 ^3/uL Eosinophils # (Auto) 0.3 0-0.8 10 ^3/uL Basophils # (Auto) 0.1 0-0.2 10 ^3/uL Nucleated Red Blood Cells 0.2 % Sodium Level 140 136-145 mmol/L Potassium Level 4.0 3.5-5.1 mmol/L Chloride Level 109 H 98-107 mmol/L Carbon Dioxide Level 24 20-31 mmol/L Anion Gap 7 5-15 Blood Urea Nitrogen 13 9-23 mg/dL Creatinine 0.97 0.700-1.30 mg/dL Glomerular Filtration Rate Calc 104 >90 mL/min BUN/Creatinine Ratio 13.4 10.0-20.0 Serum Glucose 100 74-106 mg/dL Calcium Level 9.0 8.7-10.4 mg/dL Current Medications Medications (Trade) Dose Ordered Sig/Martinez Route Start Time Stop Time Status Last Admin Aspirin (Ecotrin Enteric Coated Tablet) 325 mg ONCE ONCE PO 03/17/25 03:15 03/17/25 03:16 DC 03/17/25 03:44 [place] [id number] Ph: [phone] DIAGNOSTIC IMAGING Diagnostic Imaging Report : [id number] Signed PATIENT: THERESA ACEVEDO ACCT: [id number] UNIT: [id number] : 1990 LOC: ER ROOM / BED: / AGE / SEX: 34 / M ADM STATUS: REG ER SERVICE 4 ORDERING PHYSICIAN: ZARIA ISRAEL DO PROCEDURE(s): CXRP - CHEST PORTABLE REASON: cp ORDER NUMBER(s): [id number], ACCESSION NUMBER(s): [id number] CHEST RADIOGRAPH Indication: cp Technique: Single frontal view of the chest was obtained COMPARISON: XR CHEST 1 VIEW on DOS: 03/13/25, XY CHEST TWO VIEWS ROUTINE on DOS: 02/28/25, XR CHEST 2 VIEWS on DOS: 02/27/25, XR CHEST 1 VIEW on DOS: 02/26/25, XY CHEST XRAY 1 VIEW on DOS: 02/24/25 FINDINGS: Lines and Tubes: None Lungs: Clear Pleura: No effusion. No pneumothorax. Cardiomediastinal contours: Unremarkable Bones: Unremarkable IMPRESSION: 1. No acute disease. ATED BY: EDWIN SKINNER MD DICTATED DATE/TIME: 03/17/25323 SIGNED BY: EDWIN SKINNER MD SIGNED DATE/TIME: 03/17/25323 CC: Time of 1ST Reevaluation: 06:28 Reevaluation 1ST: Unchanged Patient Education/Counseling: Diagnosis, Treatment Family Education/Counseling: Other Comments MDM: patient presented with the above HPI.---cardiac---workup was initiated. patient was found with the above mentioned diagnosis. the following medications were ordered: please refer to order lists of meds and tests obtained by myself Dr. Israel. Patient ED course and VS have been stabilized. Patient has been reassessed in the ED and remained in a stable condition. Pertinent incidental findings were discussed with the patient and/or family. Patient/family voices understanding and is agreeable with plan. Patient has been observed in the ED adequate length of time to insure improvement/stability. Escalation of care considered: Consideration of escalation to observation or admission Patient was ADMITTED to the medicine team for further evaluation and treatment of their presentation. All the reports of any imaging studies that were ordered by myself were reviewed by myself. Departure 1 Departure Time of Disposition: 03:04 Impression: Primary Impression: Chest pain Disposition: ADMITTED INPATIENT Admit to: Tele Condition: Guarded Discharged With: Self Critical Care Note Critical Care Time?: No Heart Score Heart Score: Heart Score Response (Comments) Value History Slightly Suspicious 0 EKG Normal 0 Age <45 0 Risk Factors >3 or Hx ASHD 2 Troponin Normal limit 0 Total 2 ZARIA ISRAEL DO Mar 17, 2025 03:04
--- NOTE | 2025-03-17 03:26 | DVH ---
CHEST RADIOGRAPH Indication: cp Technique: Single frontal view of the chest was obtained COMPARISON: XR CHEST 1 VIEW on DOS: 03/13/25, XY CHEST TWO VIEWS ROUTINE on DOS: 02/28/25, XR CHEST 2 EWS on DOS: 02/27/25, XR CHEST 1 VIEW on DOS: 02/26/25, XY CHEST XRAY 1 VIEW on DOS: 02/24/25 FINDINGS: Lines and Tubes: None Lungs: Clear Pleura: No effusion. No pneumothorax. Cardiomediastinal contours: Unremarkable Bones: Unremarkable IMPRESSION: 1. No acute disease.
[2025-03-17 03:37] LABS: Cannabinoid Screen, Urine Pos (NEGATIVE); Opiate Scree,Urine Neg (NEGATIVE)
[2025-03-17 03:40] LABS: Amphetamine Screen, Urine Neg (NEGATIVE); Barbiturate Scree,Urine Neg (NEGATIVE); Benzodiazephine Screen, Urine Neg (NEGATIVE); Cocaine Screen, Urine Neg (NEGATIVE); Phencyclidine Screen, Urine Neg (NEGATIVE)
[2025-03-17] MEDS: ASPirin-EC 325mg tab PO ONE (03:44)
[2025-03-17] MEDS ORDERED: ONDANSETRON HCL 4 MG/2 ML VIAL IV PRN (04:30)
--- NOTE | 2025-03-17 04:36 | DVHHP2 ---
History of Present Illness Reason for Visit: Chest pain History of Present Illness 34-year-old male presents for evaluation of chest pain. Patient endorses a two day history of intermittent chest pain that radiates from his left chest to his right chest. Reports mild shortness for breath. No nausea or vomiting denies palpitations. Currently rates the pain at 6/10 intensity. Past Medical History Hypertension and asthma Past Surgical History Denies Family History Noncontributory Smoke: No ALCOHOL: none Drugs: None Review of Systems Review of Systems Review of systems are currently negative otherwise addressed in HPI. Allergies: Coded Allergies: Cyclobenzaprine (Verified Allergy, Unknown, 01/22/18) Ibuprofen (Verified Allergy, Unknown, 01/22/18) Ketorolac Tromethamine (Verified Allergy, Unknown, 02/28/25) Tramadol (Verified Allergy, Unknown, 01/22/18) Exam Vital Signs Vital Signs Date Time Temp Pulse Resp B/P (MAP) Pulse Ox O2 Delivery O2 Flow Rate FiO2 03/17/25 02:48 97.5 98 16 121/79 (93) 94 97.5 Exam Gen: 34-year-old male in no apparent distress. Skin: Warm, dry, normal color and texture, no rash. HEENT: Normocephalic atraumatic, mucous membranes moist and pink. Neck: Cervical and supraclavicular nodes normal without enlargement, trachea is midline, thyroid gland is normal without masses. Pulmonary: Clear to auscultation and percussion bilaterally. Cardiac: Regular rate and rhythm. No murmur Abdomen: Soft, nontender, nondistended, bowel sounds present all 4 quadrants, no guarding, no rigidity, no organomegaly. Extremities: No cyanosis, clubbing, no edema Neuro: Cranial nerves II through XII grossly intact, normal affect and speech, no focal motor deficits. Labs/Xrays ORDERING PHYSICIAN: ZARIA ISRAEL DO PROCEDURE(s): CXRP - CHEST PORTABLE REASON: cp ORDER NUMBER(s): [id number], ACCESSION NUMBER(s): [id number] CHEST RADIOGRAPH Indication: cp Technique: Single frontal view of the chest was obtained COMPARISON: XR CHEST 1 VIEW on DOS: 03/13/25, XY CHEST TWO VIEWS ROUTINE on DOS: 02/28/25, XR CHEST 2 VIEWS on DOS: 02/27/25, XR CHEST 1 VIEW on DOS: 02/26/25, XY CHEST XRAY 1 VIEW on DOS: 02/24/25 FINDINGS: Lines and Tubes: None Lungs: Clear Pleura: No effusion. No pneumothorax. Cardiomediastinal contours: Unremarkable Bones: Unremarkable IMPRESSION: 1. No acute disease. Labs Test 03/17/25 03:00 03/17/25 00:15 03/16/25 23:00 Range/Units Urine Opiates Screen Neg NEGATIVE Urine Fentanyl Screen Neg NEGATIVE Urine Barbiturates Screen Neg NEGATIVE Urine Phencyclidine Screen Neg NEGATIVE Urine Amphetamines Screen Neg NEGATIVE Urine Benzodiazepines Screen Neg NEGATIVE Urine Cocaine Screen Neg NEGATIVE Urine Cannabinoids Screen Pos NEGATIVE Troponin I High Sensitivity 6 </=54 ng/L White Blood Count 6.1 4.4-10.8 10^3/uL Red Blood Count 4.56 4.5-5.90 10^6/uL Hemoglobin 14.4 13.5-17.5 g/dL Hematocrit 42.0 41.0-53.0 % Mean Corpuscular Volume 92.0 80.0-100.0 fL Mean Corpuscular Hemoglobin 31.6 28.0-32.0 pg Mean Corpuscular Hemoglobin Concent 34.4 32.0-36.0 g/dL Red Cell Distribution Width 12.8 11.8-14.3 % Platelet Count 192 140-450 10^3/uL Mean Platelet Volume 10.2 6.9-10.8 fL Neutrophils (%) (Auto) 28.6 L 37.0-80.0 % Lymphocytes (%) (Auto) 54.4 H 10.0-50.0 % Monocytes (%) (Auto) 10.3 0.0-12.0 % Eosinophils (%) (Auto) 5.2 0.0-7.0 % Basophils (%) (Auto) 1.5 0.0-2.0 % Neutrophils # (Auto) 1.8 1.6-8.6 10 ^3/uL Lymphocytes # (Auto) 3.3 0.4-5.4 10 ^3/uL Monocytes # (Auto) 0.6 0-1.3 10 ^3/uL Eosinophils # (Auto) 0.3 0-0.8 10 ^3/uL Basophils # (Auto) 0.1 0-0.2 10 ^3/uL Nucleated Red Blood Cells 0.2 % Sodium Level 140 136-145 mmol/L Potassium Level 4.0 3.5-5.1 mmol/L Chloride Level 109 H 98-107 mmol/L Carbon Dioxide Level 24 20-31 mmol/L Anion Gap 7 5-15 Blood Urea Nitrogen 13 9-23 mg/dL Creatinine 0.97 0.700-1.30 mg/dL Glomerular Filtration Rate Calc 104 >90 mL/min BUN/Creatinine Ratio 13.4 10.0-20.0 Serum Glucose 100 74-106 mg/dL Calcium Level 9.0 8.7-10.4 mg/dL SEPSIS Sepsis Screen Date sepsis recognized/suspect: Mar 16, 2025 Time Sepsis recognized/suspect: 2248 Recent Procedure: No On Antibiotic Therapy: No Respiratory Rate >20: No Heart Rate >90: Yes Temp<36 C (96.8 F) or >38.3 C: No SBP <90 or MAP <65 mmHG: No New Acute Mental Status Change: No Is the patient on CPAP, BIPAP,: No Physician Orders Electrocardigram (03/16/25 23:51) Swimming Pool Installer And Servicer (03/17/25 ) Chest Portable (03/17/25 01:05) Metoprolol Tartrate Tablet (Lopressor Ta (03/17/25 10:00) Atorvastatin (Lipitor) (03/17/25 22:00) Aspirin Tablet (03/17/25 10:00) Admit (03/17/25 04:30) Ondansetron Hcl (Zofran) (03/17/25 04:30) Cardiac Diet-2gna,Lofat,Lochol (03/17/25 Breakfast) Echo 2d Mode Cardiac Dop (03/17/25 04:30) Condition: Stable (03/17/25 04:30) Bedrest With Bathroom Privileg (03/17/25 04:30) Vital Signs Date Time Temp Pulse Resp B/P (MAP) Pulse Ox O2 Delivery O2 Flow Rate FiO2 03/17/25 02:48 97.5 98 16 121/79 (93) 94 97.5 03/17/25 00:00 91 03/16/25 22:54 93 03/16/25 22:49 98.7 100 18 129/85 98 98.7 Laboratory Tests Test 03/16/25 23:00 White Blood Count 6.1 10^3/uL (4.4-10.8) Medications Medications Dose Ordered Sig/Martinez Route Start Time Stop Time Status Last Admin Dose Admin Aspirin 325 mg ONCE ONCE PO 03/17/25 03:15 03/17/25 03:16 DC 03/17/25 03:44 325 MG Assessment/Plan Assessment/Plan Assessment Atypical chest pain Asthma Hypertension Plan Admit the patient to telemetry to the hospitalist Echocardiogram pending Resume home medications Continue treatment per orders. Plan discussed with: Patient My Orders Orders - ASHA FLORES Procedure Category Date Status Time Metoprolol Tartrate PHA 03/17/25 Verified Tablet (Lopressor Ta 10:00 Atorvastatin (Lipitor) PHA 03/17/25 Verified 22:00 Aspirin Tablet PHA 03/17/25 Verified 10:00 Admit ADMIT 03/17/25 Verified 04:30 Ondansetron Hcl PHA 03/17/25 Verified (Zofran) 04:30 Cardiac DIET 03/17/25 Verified Diet-2gna,Lofat,Lochol Breakfast Echo 2d Mode Cardiac US 03/17/25 Verified DOP 04:30 Condition: Stable TAYLOR 03/17/25 Verified 04:30 Bedrest With Bathroom TAYLOR 03/17/25 Verified Privileg 04:30 Date of Service: Mar 17, 2025 Billing Provider: ASHA FLORES Common Visit Codes: [id number] INP/OBS CARE (MOD) ASHA FLORES Mar 17, 2025 04:36
[2025-03-17] MEDS: METOPROLOL TARTRATE 25 MG TAB PO SCH (09:03)
--- NOTE | 2025-03-17 11:14 | DVHPN2 ---
Subjective Continues to complain of chest pain; heaviness/sharp/aching Reviewed: Care Plan, H&P, Labs, Medications, Previous Orders, Radiology Changes from previous H/P or p: No Changes Objective Vitals Vital Signs Date Time Temp Pulse Resp B/P (MAP) Pulse Ox O2 Delivery O2 Flow Rate FiO2 03/17/25 09:03 87 143/94 03/17/25 08:47 18 98 03/17/25 08:47 Room Air 03/17/25 06:33 98.4 98.4 General Appearance: Alert, Oriented X3, Cooperative, No acute distress HEENT: Atraumatic Lungs: Other (Decreased air entry bilaterally with scattered wheezing) Cardiovascular: Regular rate, Normal S1, Normal S2 Abdomen: Normal bowel sounds, Soft, No tenderness Extremities: No edema Neuro: Normal speech, Cranial nerves 3-12 NL Psych/Mental Status: Mental status NL, Mood NL Medications Current Medications Medications Dose Ordered Sig/Martinez Route Start Time Stop Time Status Last Admin Dose Admin Metoprolol Tartrate 12.5 mg BID PO 03/17/25 10:00 03/17/25 09:03 12.5 MG Atorvastatin Calcium 10 mg HS PO 03/17/25 22:00 Aspirin 81 mg DAILY PO 03/17/25 10:00 03/17/25 09:03 81 MG Ondansetron HCl 4 mg Q4HP PRN IV 03/17/25 04:30 Acetaminophen/ Hydrocodone Bitart 1 tab Q4HPRN PRN PO 03/17/25 08:45 Laboratory Results Laboratory Tests 03/16/25 23:00 Chemistry Test 03/16/25 23:00 Calcium Level 9.0 mg/dL (8.7-10.4) Labs and/or images reviewed: Labs reviewed by me, Image(s) reviewed by me Assessment/Plan Assessment/Plan A 34-year-old male patient with multiple comorbidities; who presented to the emergency department with chest pain. Chest pain; to rule out ACS Suspected COPD exacerbation; heavy tobacco smoker along with heavy marijuana smoker; never had pulmonary function tests done Polysubstance use disorder including alcohol/marijuana/tobacco Hypertensive heart disease Marginally prolonged QTc interval Bipolar disorder with depression; no suicidal ideation/plan Dyslipidemia Overweight Homelessness Continue aspirin and statin No ischemic changes on EKG; negative troponin; normal BNP; echocardiogram ordered by admitting hospitalist Reviewed available lab work and chest x-ray Started IV antibiotics (doxycycline and ceftriaxone) and nebulizers along with IV steroids; influenza A and B along with COVID-19 came back negative Counseled the patient for 22 minutes for alcohol/marijuana/tobacco use cessation; exclusively 12 minutes for tobacco use cessation Counseled the patient on the importance to adopt healthy lifestyle with diet and exercise in order to lose weight Continue antihypertensive medication and adjust according to blood pressure monitoring To hold home quetiapine for now due to marginally prolonged QTC interval Centrifugal Spinner consulted for homelessness Continue monitoring Goals of care discussed with the patient for 20 minutes; full code Late Entry. This medical document was created using an electronic medical record system with computerized dictation system. Although this document has been carefully reviewed, there might still be some phonetic and typographical errors. These areas are purely typographical due to imperfections of the software programs, and do not reflect any compromise in the patient's medical care. Plan discussed with: Patient, Other (Nurse) Date of Service: Mar 17, 2025 Billing Provider: SHIELA MANDEL MD Common Visit Codes: [id number] INP/OBS CARE(HIGH) Secondary Visit Codes: [id number] CHNG SMOKING >10MIN (22 minutes for alcohol/marijuana/tobacco use cessation; exclusively 12 minutes for tobacco use cessation), [id number] CARE PLAN 30 MINUTES (20 minutes) SHIELA MANDEL MD Mar 17, 2025 11:14
[2025-03-17] MEDS: HYDROcodone-ACET 5/325MG TAB PO PRN (15:33)
[2025-03-17] MEDS: DOXYCYCLINE 100MG/100ML 100 ML IV SCH (15:37)
[2025-03-17] MEDS: methylPREDNISolone SOD SUCC 40 MG/ML VL IM ONE (15:37)
[2025-03-17] MEDS: ENOXAPARIN SOD 40 MG/0.4 ML SYRINGE SC ONE (15:37)
[2025-03-17] MEDS: IPRATROPIUM BROM 0.5 MG/2.5ML INH SOL NEB SCH (19:27)
[2025-03-17] MEDS: ALBUTEROL SULF 2.5 MG/0.5ML(0.5%) NEB SOLN NEB PRN (19:27)
[2025-03-17] MEDS: ATORVASTATIN 20 MG TAB PO SCH (21:29)
[2025-03-17] MEDS: methylPREDNISolone SOD SUCC 40 MG/ML VL IV SCH (21:29)
[2025-03-17 21:42] LABS: COVID19 ANTIGEN SOFIA FIA NEGATIVE (NEGATIVE)
[2025-03-18] VITALS (14 sets, daily range): BP systolic 124–145; BP diastolic 76–95; PULSE 89–115; RESP 15–20; TEMP 97.2–98.2; O2SAT 95–100
[2025-03-18] MEDS: DOXYCYCLINE 100MG/100ML 100 ML IV SCH (04:55)
[2025-03-18 07:38] LABS: Hematocrit 45.9 % (41.0-53.0); Hemoglobin 15.6 g/dL (13.5-17.5); Mean Corpuscular Hemoglobin 31.3 pg (28.0-32.0); Mean Corpuscular Volume 91.8 fL (80.0-100.0); Nucleated Red Blood Cells % 0.0 %
[2025-03-18 07:50] LABS: Potassium 4.2 mmol/L (3.5-5.1); Sodium 138 mmol/L (136-145)
[2025-03-18 07:51] LABS: Anion Gap 7 (5-15); Calcium 10.0 mg/dL (8.7-10.4); Carbon Dioxide 23 mmol/L (20-31)
[2025-03-18 07:56] LABS: BUN/Creatinine Ratio 11.5 (10.0-20.0); Blood Urea Nitrogen 11 mg/dL (9-23)
[2025-03-18 07:59] LABS: Chloride 108 mmol/L (98-107); Glucose 148 mg/dL (74-106)
[2025-03-18] MEDS: ENOXAPARIN SOD 40 MG/0.4 ML SYRINGE SC SCH (10:45)
--- NOTE | 2025-03-18 11:46 | DVHPN2 ---
Subjective Still c/o sharp chest pain Reviewed: Care Plan, H&P, Labs, Medications, Previous Orders, Radiology Changes from previous H/P or p: Changes Objective Vitals Vital Signs Date Time Temp Pulse Resp B/P (MAP) Pulse Ox O2 Delivery O2 Flow Rate FiO2 03/18/25 10:45 105 145/85 03/18/25 09:59 18 97 03/18/25 09:59 Room Air 03/18/25 09:59 0 21 03/18/25 09:48 98.0 98.0 Intake/Output Intake and Output 03/18/25 07:00 Intake Total 300 ml Balance 300 ml Intake Oral 300 ml # Voids 1 General Appearance: Alert, Oriented X3, Cooperative, No acute distress HEENT: Atraumatic Lungs: Other (Decreased air entry bilaterally with scattered wheezing) Cardiovascular: Regular rate, Normal S1, Normal S2 Abdomen: Normal bowel sounds, Soft, No tenderness Extremities: No edema Neuro: Normal speech, Cranial nerves 3-12 NL Psych/Mental Status: Mental status NL, Mood NL Medications Current Medications Medications Dose Ordered Sig/Martinez Route Start Time Stop Time Status Last Admin Dose Admin Metoprolol Tartrate 12.5 mg BID PO 03/17/25 10:00 03/18/25 10:45 12.5 MG Atorvastatin Calcium 10 mg HS PO 03/17/25 22:00 03/17/25 21:29 10 MG Aspirin 81 mg DAILY PO 03/17/25 10:00 03/18/25 10:43 81 MG Ondansetron HCl 4 mg Q4HP PRN IV 03/17/25 04:30 Acetaminophen/ Hydrocodone Bitart 1 tab Q4HPRN PRN PO 03/17/25 08:45 03/18/25 10:50 1 TAB Albuterol 1.25 mg Q4HWA PRN NEB 03/17/25 14:30 03/18/25 09:59 1.25 MG Ipratropium [place] 0.5 mg Q4HWA NEB 03/17/25 18:00 03/18/25 09:59 0.5 MG Methylprednisolone Sodium Succinate 40 mg BID IV 03/17/25 22:00 03/18/25 10:40 40 MG Ceftriaxone Sodium 50 ml @ 100 mls/hr DAILY@09 IV 03/18/25 09:00 03/18/25 10:38 100 MLS/HR Enoxaparin Sodium 40 mg DAILY SC 03/18/25 10:00 03/18/25 10:45 40 MG Doxycycline Hyclate 100 ml @ 50 mls/hr Q12H IV 03/18/25 05:00 03/18/25 04:55 50 MLS/HR Laboratory Results Laboratory Tests 03/18/25 06:14 Chemistry Test 03/18/25 06:14 Calcium Level 10.0 mg/dL (8.7-10.4) Cardiac Markers Test 03/17/25 14:33 B-Type Natriuretic Peptide 2.76 pg/mL (0-100) Assessment/Plan Assessment/Plan Chest pain Polysubstance use disorder including alcohol/marijuana/tobacco Hypertensive heart disease Bipolar disorder with depression; no suicidal ideation/plan Dyslipidemia Overweight Homelessness PLAN: Echo Doreen garza wallboard worker consult for discharge planning Full code Advanced directives discussed x 17 minutes Plan discussed with: Patient Date of Service: Mar 18, 2025 Billing Provider: LILIA HEMPHILL MD Common Visit Codes: [id number] INP/OBS CARE(HIGH) Secondary Visit Codes: [id number] CARE PLAN 30 MINUTES LILIA HEMPHILL MD Mar 18, 2025 11:46
[2025-03-19] VITALS (13 sets, daily range): BP systolic 117–138; BP diastolic 72–91; PULSE 83–113; RESP 16–20; TEMP 98–98.8; O2SAT 10–100
[2025-03-19 07:31] LABS: Alanine Aminotransferase 40 U/L (7-40); Alkaline Phosphatase 74 U/L (46-116); Anion Gap 9 (5-15); BUN/Creatinine Ratio 13.5 (10.0-20.0); Blood Urea Nitrogen 15 mg/dL (9-23); Calcium 9.8 mg/dL (8.7-10.4); Carbon Dioxide 24 mmol/L (20-31); Magnesium 2.1 mg/dL (1.6-2.6); Potassium 4.3 mmol/L (3.5-5.1); Sodium 141 mmol/L (136-145); Total Protein 7.2 g/dL (5.7-8.2); Triglycerides 84 mg/dL (< 150)
[2025-03-19 07:32] LABS: Albumin 4.6 g/dL (3.2-4.8)
[2025-03-19 07:44] LABS: Bilirubin, Total 0.3 mg/dL (0.2-1.0); Chloride 108 mmol/L (98-107); Cholesterol 204 mg/dL (< 200); Glucose 144 mg/dL (74-106); HDL Cholesterol 65 mg/dL (40-59)
--- NOTE | 2025-03-19 12:07 | DVHPN2 ---
Subjective He is still having chest pain on and off Echocardiogram is pending Reviewed: Care Plan, H&P, Labs, Medications, Previous Orders, Radiology Changes from previous H/P or p: Changes Objective Vitals Vital Signs Date Time Temp Pulse Resp B/P (MAP) Pulse Ox O2 Delivery O2 Flow Rate FiO2 03/19/25 10:24 101 123/81 03/19/25 09:00 98.2 20 97 98.2 03/18/25 20:00 Room Air* 0 21 Intake/Output Intake and Output 03/19/25 07:00 Intake Total 1650 ml Balance 1650 ml Intake Oral 1600 ml IV Total 50 ml # Voids 8 # Bowel Movements 2 General Appearance: Alert, Oriented X3, Cooperative, No acute distress HEENT: Atraumatic Lungs: Other (Decreased air entry bilaterally with scattered wheezing) Cardiovascular: Regular rate, Normal S1, Normal S2 Abdomen: Normal bowel sounds, Soft, No tenderness Extremities: No edema Neuro: Normal speech, Cranial nerves 3-12 NL Psych/Mental Status: Mental status NL, Mood NL Medications Current Medications Medications Dose Ordered Sig/Martinez Route Start Time Stop Time Status Last Admin Dose Admin Metoprolol Tartrate 12.5 mg BID PO 03/17/25 10:00 03/19/25 10:24 12.5 MG Atorvastatin Calcium 10 mg HS PO 03/17/25 22:00 03/18/25 22:08 10 MG Aspirin 81 mg DAILY PO 03/17/25 10:00 03/19/25 10:22 81 MG Ondansetron HCl 4 mg Q4HP PRN IV 03/17/25 04:30 Albuterol 1.25 mg Q4HWA PRN NEB 03/17/25 14:30 03/18/25 19:51 1.25 MG Ipratropium [place] 0.5 mg Q4HWA NEB 03/17/25 18:00 03/18/25 19:51 0.5 MG Methylprednisolone Sodium Succinate 40 mg BID IV 03/17/25 22:00 03/19/25 10:27 40 MG Ceftriaxone Sodium 50 ml @ 100 mls/hr DAILY@09 IV 03/18/25 09:00 03/19/25 10:30 100 MLS/HR Enoxaparin Sodium 40 mg DAILY SC 03/18/25 10:00 03/19/25 10:26 40 MG Doxycycline Hyclate 100 ml @ 50 mls/hr Q12H IV 03/18/25 05:00 03/19/25 05:10 50 MLS/HR Laboratory Results Laboratory Tests 03/18/25 06:14 03/19/25 05:28 Chemistry Test 03/19/25 05:28 Albumin 4.6 g/dL (3.2-4.8) Calcium Level 9.8 mg/dL (8.7-10.4) Magnesium Level 2.1 mg/dL (1.6-2.6) Total Protein 7.2 g/dL (5.7-8.2) Lipid panel Test 03/19/25 05:28 Cholesterol Level 204 mg/dL (< 200) H HDL Cholesterol 65 mg/dL (40-59) H Triglycerides Level 84 mg/dL (< 150) LFT Test 03/19/25 05:28 Alanine Aminotransferase (ALT) 40 U/L (7-40) Alkaline Phosphatase 74 U/L (46-116) Aspartate Amino Transferase (AST) 27 U/L (13-40) Total Bilirubin 0.3 mg/dL (0.2-1.0) HgA1c, TSH Test 03/19/25 05:28 Thyroid Stimulating Hormone (TSH) 0.64 uIU/mL (0.55-4.78) Assessment/Plan Assessment/Plan Chest pain Polysubstance use disorder including alcohol/marijuana/tobacco Hypertensive heart disease Bipolar disorder with depression; no suicidal ideation/plan Dyslipidemia Overweight Homelessness PLAN: Echo [place] prn production utility worker consult for discharge planning Full code Advanced directives discussed x 17 minutes 03/19/2025: Echocardiogram is pending Increase [place] to 10/325 q.6 hours p.r.n. production utility worker consult for homelessness Monitor closely Plan discussed with: Patient My Orders Orders - LILIA HEMPHILL MD Procedure Category Date Status Time Hydrocodone-Acet PHA 03/19/25 Verified 10/325mg Tab ([place] 12:15 Date of Service: Mar 19, 2025 Billing Provider: LILIA HEMPHILL MD Common Visit Codes: [id number] INP/OBS CARE(HIGH) LILIA HEMPHILL MD Mar 19, 2025 12:07
[2025-03-19] MEDS: HYDROcodone-ACET 10/325MG TAB PO PRN (13:48)
[2025-03-19] MEDS: ATORVASTATIN 20 MG TAB PO SCH (23:06)
[2025-03-20] VITALS (16 sets, daily range): BP systolic 118–136; BP diastolic 65–88; PULSE 80–104; RESP 16–19; TEMP 98–98.9; O2SAT 92–100
--- NOTE | 2025-03-20 11:51 | DVHPN2 ---
Subjective Doing well Asymptomatic Reviewed: Care Plan, H&P, Labs, Medications, Previous Orders, Radiology Changes from previous H/P or p: Changes Objective Vitals Vital Signs Date Time Temp Pulse Resp B/P (MAP) Pulse Ox O2 Delivery O2 Flow Rate FiO2 03/20/25 09:36 96 18 100 03/20/25 09:30 Room Air* 0 21 03/20/25 09:00 98.3 136/88 (104) 98.3 Intake/Output Intake and Output 03/20/25 07:00 Intake Total 1770 ml Output Total 800 ml Balance 970 ml Intake Oral 1720 ml IV Total 50 ml Output Urine Total 800 ml # Voids 3 # Bowel Movements 3 General Appearance: Alert, Oriented X3, Cooperative, No acute distress HEENT: Atraumatic Lungs: Other (Decreased air entry bilaterally with scattered wheezing) Cardiovascular: Regular rate, Normal S1, Normal S2 Abdomen: Normal bowel sounds, Soft, No tenderness Extremities: No edema Neuro: Normal speech, Cranial nerves 3-12 NL Psych/Mental Status: Mental status NL, Mood NL Medications Current Medications Medications Dose Ordered Sig/Martinez Route Start Time Stop Time Status Last Admin Dose Admin Metoprolol Tartrate 12.5 mg BID PO 03/17/25 10:00 03/20/25 08:43 12.5 MG Aspirin 81 mg DAILY PO 03/17/25 10:00 03/20/25 08:43 81 MG Ondansetron HCl 4 mg Q4HP PRN IV 03/17/25 04:30 Albuterol 1.25 mg Q4HWA PRN NEB 03/17/25 14:30 03/20/25 09:30 1.25 MG Ipratropium [place] 0.5 mg Q4HWA NEB 03/17/25 18:00 03/20/25 09:30 0.5 MG Methylprednisolone Sodium Succinate 40 mg BID IV 03/17/25 22:00 03/20/25 08:41 40 MG Ceftriaxone Sodium 50 ml @ 100 mls/hr DAILY@09 IV 03/18/25 09:00 03/20/25 08:41 100 MLS/HR Enoxaparin Sodium 40 mg DAILY SC 03/18/25 10:00 03/20/25 08:51 40 MG Doxycycline Hyclate 100 ml @ 50 mls/hr Q12H IV 03/18/25 05:00 03/20/25 05:46 50 MLS/HR Acetaminophen/ Hydrocodone Bitart 1 tab Q6HP PRN PO 03/19/25 12:15 03/20/25 06:58 1 TAB Atorvastatin Calcium 40 mg HS PO 03/19/25 22:00 03/19/25 23:06 40 MG Laboratory Results Laboratory Tests 03/18/25 06:14 03/19/25 05:28 Assessment/Plan Assessment/Plan Chest pain Polysubstance use disorder including alcohol/marijuana/tobacco Hypertensive heart disease Bipolar disorder with depression; no suicidal ideation/plan Dyslipidemia Overweight Homelessness PLAN: Echo [place] 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 load out worker consult for homelessness Monitor closely 03/20/2025: Echocardiogram is pending No chest pain today Continue [place] p.r.n. Discontinue IV antibiotics Plan discussed with: Patient My Orders Orders - LILIA HEMPHILL MD Procedure Category Date Status Time Hydrocodone-Acet PHA 03/19/25 In Process 10/325mg Tab ([place] 12:15 Atorvastatin (Lipitor) PHA 03/19/25 In Process 22:00 Date of Service: Mar 20, 2025 Billing Provider: LILIA HEMPHILL MD Common Visit Codes: [id number] INP/OBS CARE(HIGH) LILIA HEMPHILL MD Mar 20, 2025 11:51
[2025-03-21] VITALS (17 sets, daily range): BP systolic 112–128; BP diastolic 69–88; PULSE 73–120; RESP 16–20; TEMP 97.9–98.9; O2SAT 94–100
--- NOTE | 2025-03-21 11:00 | DVHPN2 ---
Subjective Doing well Asymptomatic Reviewed: Care Plan, H&P, Labs, Medications, Previous Orders, Radiology Changes from previous H/P or p: Changes Objective Vitals Vital Signs Date Time Temp Pulse Resp B/P (MAP) Pulse Ox O2 Delivery O2 Flow Rate FiO2 03/21/25 10:50 99 18 100 03/21/25 09:54 124/84 03/21/25 09:00 98.0 98.0 03/21/25 07:17 Room Air* 0 21 Intake/Output Intake and Output 03/21/25 07:00 Intake Total 1558 ml Balance 1558 ml Intake Oral 1408 ml IV Total 150 ml # Voids 10 # Bowel Movements 4 General Appearance: Alert, Oriented X3, Cooperative, No acute distress HEENT: Atraumatic Lungs: Other (Decreased air entry bilaterally with scattered wheezing) Cardiovascular: Regular rate, Normal S1, Normal S2 Abdomen: Normal bowel sounds, Soft, No tenderness Extremities: No edema Neuro: Normal speech, Cranial nerves 3-12 NL Psych/Mental Status: Mental status NL, Mood NL Medications Current Medications Medications Dose Ordered Sig/Martinez Route Start Time Stop Time Status Last Admin Dose Admin Metoprolol Tartrate 12.5 mg BID PO 03/17/25 10:00 03/21/25 09:54 12.5 MG Aspirin 81 mg DAILY PO 03/17/25 10:00 03/21/25 09:52 81 MG Ondansetron HCl 4 mg Q4HP PRN IV 03/17/25 04:30 Albuterol 1.25 mg Q4HWA PRN NEB 03/17/25 14:30 03/21/25 10:[address] [place] 0.5 mg Q4HWA NEB 03/17/25 18:00 03/21/25 10:51 0.5 MG Methylprednisolone Sodium Succinate 40 mg BID IV 03/17/25 22:00 03/21/25 09:52 40 MG Enoxaparin Sodium 40 mg DAILY SC 03/18/25 10:00 03/21/25 09:54 40 MG Acetaminophen/ Hydrocodone Bitart 1 tab Q6HP PRN PO 03/19/25 12:15 03/21/25 09:52 1 TAB Atorvastatin Calcium 40 mg HS PO 03/19/25 22:00 03/20/25 20:40 40 MG Laboratory Results Laboratory Tests 03/18/25 06:14 03/19/25 05:28 Assessment/Plan Assessment/Plan Chest pain Polysubstance use disorder including alcohol/marijuana/tobacco Hypertensive heart disease Bipolar disorder with depression; no suicidal ideation/plan Dyslipidemia Overweight Homelessness PLAN: Echo [place] prn [employer]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 [place] worker helper consult for homelessness Monitor closely 03/20/2025: Echocardiogram is pending No chest pain today Continue [place] p.r.n. Discontinue IV antibiotics 03/21/2025: Continue current management Monitor closely Discharge planning for tomorrow Plan discussed with: Patient Date of Service: Mar 21, 2025 Billing Provider: LILIA HEMPHILL MD Common Visit Codes: [id number] INP/OBS CARE(MOD) LILIA HEMPHILL MD Mar 21, 2025 11:00
[2025-03-22] VITALS (17 sets, daily range): BP systolic 106–139; BP diastolic 64–88; PULSE 86–111; RESP 18–20; TEMP 97.7–98.5; O2SAT 95–100
[2025-03-22] MEDS ORDERED: HYDR-4902 PO (11:49)
--- NOTE | 2025-03-22 11:52 | DVHDS2 ---
Discharge Summary Date of Admission Mar 17, 2025 at 04:30 Date of Discharge: Mar 22, 2025 Labs/Diagnostic Data: Laboratory Results Test 03/19/25 05:28 03/18/25 06:14 03/17/25 15:57 03/17/25 14:33 Sodium Level 141 mmol/L (136-145) Potassium Level 4.3 mmol/L (3.5-5.1) Chloride Level 108 mmol/L (98-107) Carbon Dioxide Level 24 mmol/L (20-31) Anion Gap 9 (5-15) Blood Urea Nitrogen 15 mg/dL (9-23) Creatinine 1.11 mg/dL (0.700-1.30) Glomerular Filtration Rate Calc 89 mL/min (>90) BUN/Creatinine Ratio 13.5 (10.0-20.0) Serum Glucose 144 mg/dL (74-106) Calcium Level 9.8 mg/dL (8.7-10.4) Magnesium Level 2.1 mg/dL (1.6-2.6) Total Bilirubin 0.3 mg/dL (0.2-1.0) Aspartate Amino Transferase (AST) 27 U/L (13-40) Alanine Aminotransferase (ALT) 40 U/L (7-40) Alkaline Phosphatase 74 U/L (46-116) Total Protein 7.2 g/dL (5.7-8.2) Albumin 4.6 g/dL (3.2-4.8) Triglycerides Level 84 mg/dL (< 150) Cholesterol Level 204 mg/dL (< 200) LDL Cholesterol 132 mg/dL (< 100) HDL Cholesterol 65 mg/dL (40-59) Thyroid Stimulating Hormone (TSH) 0.64 uIU/mL (0.55-4.78) White Blood Count 8.7 10^3/uL (4.4-10.8) Red Blood Count 5.00 10^6/uL (4.5-5.90) Hemoglobin 15.6 g/dL (13.5-17.5) Hematocrit 45.9 % (41.0-53.0) Mean Corpuscular Volume 91.8 fL (80.0-100.0) Mean Corpuscular Hemoglobin 31.3 pg (28.0-32.0) Mean Corpuscular Hemoglobin Concent 34.1 g/dL (32.0-36.0) Red Cell Distribution Width 12.5 % (11.8-14.3) Platelet Count 195 10^3/uL (140-450) Mean Platelet Volume 9.7 fL (6.9-10.8) Neutrophils (%) (Auto) 83.2 % (37.0-80.0) Lymphocytes (%) (Auto) 13.2 % (10.0-50.0) Monocytes (%) (Auto) 3.0 % (0.0-12.0) Eosinophils (%) (Auto) 0.0 % (0.0-7.0) Basophils (%) (Auto) 0.6 % (0.0-2.0) Neutrophils # (Auto) 7.2 10 ^3/uL (1.6-8.6) Lymphocytes # (Auto) 1.1 10 ^3/uL (0.4-5.4) Monocytes # (Auto) 0.3 10 ^3/uL (0-1.3) Eosinophils # (Auto) 0 10 ^3/uL (0-0.8) Basophils # (Auto) 0 10 ^3/uL (0-0.2) Nucleated Red Blood Cells 0.0 % Influenza Type A Antigen Negative (Negative) Influenza Type B Antigen Negative (Negative) SARS-CoV-2 Antigen (Rapid) Negative (NEGATIVE) B-Type Natriuretic Peptide 2.76 pg/mL (0-100) Test 03/17/25 03:00 03/17/25 00:15 Urine Opiates Screen Neg (NEGATIVE) Urine Fentanyl Screen Neg (NEGATIVE) Urine Barbiturates Screen Neg (NEGATIVE) Urine Phencyclidine Screen Neg (NEGATIVE) Urine Amphetamines Screen Neg (NEGATIVE) Urine Benzodiazepines Screen Neg (NEGATIVE) Urine Cocaine Screen Neg (NEGATIVE) Urine Cannabinoids Screen Pos (NEGATIVE) Troponin I High Sensitivity 6 ng/L (</=54) Other Laboratory Tests 03/19/25 05:28 03/18/25 06:14 Brief Hx & Hospital Course: Final diagnoses: Chest pain, musculoskeletal Polysubstance use disorder including alcohol/marijuana/tobacco Hypertensive heart disease Bipolar disorder with depression; no suicidal ideation/plan Dyslipidemia Overweight Homelessness 34-year-old male was admitted for chest pain was ruled out for myocardial infarction troponins were negative Workup was normal Overall he improved and he remained stable however he says he is homeless and therefore social consultation was done and resources were provided He is doing well now and therefore he is stable for discharge Condition at Discharge: Stable Final Diagnosis/Problems List Chest pain Polysubstance use disorder including alcohol/marijuana/tobacco Hypertensive heart disease Bipolar disorder with depression; no suicidal ideation/plan Dyslipidemia Overweight Homelessness Discharge Disposition: Home SNF Discharge Will this Physician continue t: No Discharge Instruct/Medications Diet: Regular Activity: No Restrictions, As Tolerated Follow Up/Referral: PCP [facility] Medications: [place] prn Scheduled Acetaminophen (Acetaminophen), 500 MG PO Q4HPRN Amoxicillin Trihydrate (Amoxicillin), 1 CAP PO TID Pantoprazole Sodium Sesquihydr (Pantoprazole Sodium), 40 MG PO DAILY Pantoprazole Sodium Sesquihydr (Protonix), 40 MG PO DAILY Scheduled PRN Famotidine (Pepcid Tablet), 1 TAB PO BID PRN Gabapentin (Once-Daily) (Gabapentin), 300 MG PO Q6HP PRN Hydrocodone-Acetaminophen ([place] 10-325 mg), 1 TAB PO Q6HP PRN for MODERATE PAIN, (Reported) Hydrocodone-Acetaminophen (Hydrocodone Bitartrate/AC 10-325 mg), 1 TAB PO Q6HPRN PRN Hydrocodone-Acetaminophen (Hydrocodone Bitartrate/AC 5-325 mg), 1 TAB PO Q6HP PRN Ondansetron (Zofran), 4 MG PO Q6HPRN PRN Miscellaneous Medications Albuterol Sulfate (Ventolin Mdi), 90 MCG IN, (Reported) Beclomethasone Dipropionate (Qvar Redihaler), 80 MCG IN, (Reported) Discharge Statement: "Patient was advised to return to the ER or call 911 if any headaches, dizziness, shortness of breath, chest pain, abdominal pain, bleeding, fevers, or worsening of medical condition. Patient was counseled about treatment plan, medications, possible side effects, patientverbalized understanding. All questions were answered to the best of my ability. This discharge took greater then 30 minutes in planning, reviewing documentation, counseling the patient, and discussing with other team members." ASSESSMENT ASSESSMENT Assessment Chest pain Polysubstance use disorder including alcohol/marijuana/tobacco Hypertensive heart disease Bipolar disorder with depression; no suicidal ideation/plan Dyslipidemia Overweight Homelessness Date of Service: Mar 22, 2025 Billing Provider: LILIA HEMPHILL MD Common Visit Codes: [id number] DISCH DAY >30min LILIA HEMPHILL MD Mar 22, 2025 11:52
--- NOTE | 2025-03-22 16:32 | DVHSR ---
APPROVED REPORT EXAM: Two-dimensional and M-mode echocardiogram with Doppler and color Doppler. Blood Pressure: 124/82 mmHg INDICATION Chest Pain RISK FACTORS Height: 5'3", Weight: 164 DIMENSIONS LVDd3.5 (3.8-5.7cm)LA (2D)3.3 (1.9-4.0cm)Aortic Root2.9 (2.0-3.7cm) LVDs1.8 (2.5-4.0cm)LA (MM) (1.9-4.0cm)Aortic Cusp Exc1.9 (1.5-2.0cm) EF (%) 80.0 (55-70%)Rt. Atrium3.4 (1.9-4.0cm)Asc. Aorta2.9 cm IVSd1.9 (0.7-1.1cm)RV (D) (1.8-2.4cm) PWd1.0 (0.7-1.1cm) Mitral Valve MitralMitral Stenosis E/A ratio0.02D MVAcm2 Aortic Valve Aortic ValveAortic Stenosis V11.82m/Elvira Mean GR.11mmHg V21.98m/Elvira Peak GR.17mmHg LVOT Diameter1.9 (1.8-2.4cm)Doppler AVA2.60cm2 Pulmonic Valve V21.13m/s Other Information Quality : Technically LimitedRhythm : Technically limited study due to body habitus. Conclusion Sinus rhythm. Concentric LVH of notable degree. Valves are normal. EF of 75-80% with hypercontractility of the left ventricle. Normal RV function. Dopplers unremarkable. No pericardial effusion masses or vegetations.
[2025-03-23] VITALS (9 sets, daily range): BP systolic 118–132; BP diastolic 74–88; PULSE 82–97; RESP 12–20; TEMP 97.1–98.5; O2SAT 95–100
--- NOTE | 2025-03-23 08:11 | DVHPN2 ---
Subjective Doing well Asymptomatic Did not go home yesterday due to transportation problems Reviewed: Care Plan, H&P, Labs, Medications, Previous Orders, Radiology Changes from previous H/P or p: Changes Objective Vitals Vital Signs Date Time Temp Pulse Resp B/P (MAP) Pulse Ox O2 Delivery O2 Flow Rate FiO2 03/23/25 06:38 94 16 118/74 100 03/23/25 06:16 Room Air 03/23/25 06:16 0 21 03/23/25 05:00 97.1 97.1 Intake/Output Intake and Output 03/23/25 07:00 Intake Total 3907 ml Balance 3907 ml Intake Oral 3907 ml # Voids 9 # Bowel Movements 5 General Appearance: Alert, Oriented X3, Cooperative, No acute distress HEENT: Atraumatic Lungs: Other (Decreased air entry bilaterally with scattered wheezing) Cardiovascular: Regular rate, Normal S1, Normal S2 Abdomen: Normal bowel sounds, Soft, No tenderness Extremities: No edema Neuro: Normal speech, Cranial nerves 3-12 NL Psych/Mental Status: Mental status NL, Mood NL Medications Current Medications Medications Dose Ordered Sig/Martinez Route Start Time Stop Time Status Last Admin Dose Admin Metoprolol Tartrate 12.5 mg BID PO 03/17/25 10:00 03/22/25 20:44 12.5 MG Aspirin 81 mg DAILY PO 03/17/25 10:00 03/22/25 09:25 81 MG Ondansetron HCl 4 mg Q4HP PRN IV 03/17/25 04:30 Albuterol 1.25 mg Q4HWA PRN NEB 03/17/25 14:30 03/23/25 06:16 1.25 MG Ipratropium [place] 0.5 mg Q4HWA NEB 03/17/25 18:00 03/23/25 06:16 0.5 MG Methylprednisolone Sodium Succinate 40 mg BID IV 03/17/25 22:00 03/22/25 20:44 40 MG Enoxaparin Sodium 40 mg DAILY SC 03/18/25 10:00 03/22/25 09:24 40 MG Acetaminophen/ Hydrocodone Bitart 1 tab Q6HP PRN PO 03/19/25 12:15 03/23/25 06:33 1 TAB Atorvastatin Calcium 40 mg HS PO 03/19/25 22:00 03/22/25 20:43 40 MG Laboratory Results Laboratory Tests 03/18/25 06:14 03/19/25 05:28 Assessment/Plan Assessment/Plan Chest pain Polysubstance use disorder including alcohol/marijuana/tobacco Hypertensive heart disease Bipolar disorder with depression; no suicidal ideation/plan Dyslipidemia Overweight Homelessness PLAN: Echo [place] 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 wafer polishing worker consult for homelessness Monitor closely 03/20/2025: Echocardiogram is pending No chest pain today Continue [place] p.r.n. Discontinue IV antibiotics 03/21/2025: Continue current management Monitor closely Discharge planning for tomorrow 03/23/2025: Patient is stable for discharge Echocardiogram was negative The patient is asymptomatic [place] p.r.n. for pain was sent to his pharmacy Plan discussed with: Patient My Orders Orders - LILIA HEMPHILL MD Procedure Category Date Status Time Discharge DISCHARGE 03/23/25 Transmitted 08:00 Date of Service: Mar 23, 2025 Billing Provider: LILIA HEMPHILL MD Common Visit Codes: [id number] INP/OBS CARE(MOD) LILIA HEMPHILL MD Mar 23, 2025 08:11
== END 2025-03-23 12:27 | disposition home or self-care (01) | DRG 776 ==
LOC: ER 22:53 → OVERFLOW 03-17 04:30 → WEST WING 03-17 23:06
PROVIDERS: ADMIT Internal Medicine Geriatric Medicine; ATTEND Internal Medicine Geriatric Medicine
DX: F19.10 Other psychoactive substance abuse, uncomplicated (principal); F31.9 Bipolar disorder, unspecified; Z59.00 Homelessness unspecified; E11.9 Type 2 diabetes mellitus without complications; Z20.822 Contact with and (suspected) exposure to COVID-19; J45.909 Unspecified asthma, uncomplicated; I11.9 Hypertensive heart disease without heart failure; E66.3 Overweight; G89.4 Chronic pain syndrome; E78.5 Hyperlipidemia, unspecified; F17.210 Nicotine dependence, cigarettes, uncomplicated; F12.90 Cannabis use, unspecified, uncomplicated; R94.31 Abnormal electrocardiogram [ECG] [EKG]; Z88.6 Allergy status to analgesic agent; Z88.8 Allergy status to other drugs, medicaments and biological substances; Z68.29 Body mass index [BMI] 29.0-29.9, adult; Z76.5 Malingerer [conscious simulation]
CPT/HCPCS: 36415; 71045; 80048; 80053; 80061; 80307; 83735; 83880; 84443; 84484; 85025; 87426; 87804; 93005; 93306; 94640; G0378

== ENCOUNTER 2025-06-10 00:55 | Emergency (ER) | payer MEDICAID ==
[~2025-06-10] VITALS: Ht 170.2 cm; Wt 76.4 kg
[~2025-06-10 00:55] MED LIST changes: -AMOX500C2 PO; +HYDR-4902 PO
[2025-06-10 02:25] VITALS: BP 138/88; PULSE 101; RESP 18; TEMP 97.9; O2SAT 96
--- NOTE | 2025-06-10 02:28 | ED.PDOC ---
Back pain HPI HPI Comments 34-year-old male presents to ER for pain management of chronic lumbar back pain. Patient presents to ER requesting pain management for his chronic lumbar back pain. He rates his pain an 8/10 diffuse to lower lumbar region that he reports is chronic. Patient presents to ER ambulatory on arrival with steady gait, is well known to checking into ER here for similar complaint and often states he is going to f/u with pain management but has yet to do so. Denies fever, body aches, chills, night sweats, fatigue, trauma/falls/heavy lifting, numbness/tingling, n/v, chest pain, abdominal pain, extremity weakness, changes in urination/bm or any further symptoms/complaints Chief Complaint: Back Pain Time Seen by MD: 01:13 Primary Care Provider: Kaia Reviewed Notes: Nurses Notes, Medications, Allergies Allergies: Coded Allergies: Cyclobenzaprine (Verified Allergy, Unknown, 01/22/18) Ibuprofen (Verified Allergy, Unknown, 01/22/18) Ketorolac Tromethamine (Verified Allergy, Unknown, 02/28/25) Tramadol (Verified Allergy, Unknown, 01/22/18) Home Meds Active Scripts Acetaminophen (Acetaminophen) 500 Mg Tab, 500 MG PO Q4HPRN, #30 TAB 0 Refills Prov:MILEY BERUMEN 06/10/25 Hydrocodone-Acetaminophen (Hydrocodone Bitartrate/AC 5-325 mg) 1 Tab Tab, 1 TAB PO Q6HP PRN, #10 TAB Prov:LILIA HEMPHILL MD 03/22/25 Acetaminophen (Acetaminophen) 500 Mg Tab, 500 MG PO Q4HPRN, #30 TAB 0 Refills Prov:MILEY BERUMEN 03/04/25 Famotidine (PEPCID TABLET) 20 Mg Tb, 1 TAB PO BID PRN, #60 TAB 5 Refills Prov:JESSICA NGUYEN MD 12/10/24 Gabapentin (Once-Daily) (Gabapentin) 300 Mg Tab, 300 MG PO Q6HP PRN, #60 TAB Prov:JESSICA NGUYEN MD 12/10/24 Ondansetron (Zofran) 4 Mg Tab, 4 MG PO Q6HPRN PRN, #30 MG Prov:LIONEL JAMESON DO 02/26/22 Pantoprazole Sodium Sesquihydr (Protonix) 40 Mg Tab, 40 MG PO DAILY, #30 TAB Prov:JAMESONLIONEL Jazmín DO 02/26/22 Hydrocodone-Acetaminophen (Hydrocodone Bitartrate/AC 10-325 mg) 1 Tab Tab, 1 TAB PO Q6HPRN PRN, #30 TAB Prov:LIONEL JAMESON Jazmín DO 02/26/22 Pantoprazole Sodium Sesquihydr (Pantoprazole Sodium) 40 Mg Tab, 40 MG PO DAILY, #30 TAB 1 Refill Prov:DEISY QIU MD 08/01/18 Reported Medications Beclomethasone Dipropionate (Qvar Redihaler) 80 Mcg/Act Aer, 80 MCG IN, AER 07/31/18 Albuterol Sulfate (VENTOLIN MDI) 90 Mcg Ih, 90 MCG IN 07/31/18 Hydrocodone-Acetaminophen ([place] 10-325 mg) 1 Tab Tab, 1 TAB PO Q6HP PRN for MODERATE PAIN, TAB 07/31/18 Information Source: Patient Mode of Arrival: Ambulatory Past Medical History PAST MEDICAL HISTORY: Asthma Past Medical History (Other): Chronic lumbar back pain Surgical History: Denies all surgeries Family History Family History: Unknown Social History Smoker: Cigarettes, Less Than 1 Pack/Day Alcohol: Rarely, Occasionally Drugs: Marijuana Lives In: Home Constitutional: denies: chills, diaphoresis, fatigue, fever, malaise, sweats, weakness, others EENTM: denies: blurred vision, double vision, ear bleeding, ear discharge, ear drainage, ear pain, ear ringing, eye pain, eye redness, hearing loss, mouth pain, mouth swelling, nasal discharge, nose bleeding, nose congestion, nose pain, photophobia, tearing, throat pain, throat swelling, voice changes, others Respiratory: denies: cough, hemoptysis, orthopnea, SOB at rest, shortness of breath, SOB with excertion, stridor, wheezing, others Cardiovascular: denies: chest pain, dizzy spells, diaphoresis, Dyspnea on exertion, edema, irregular heart beat, left arm pain, lightheadedness, palpitations, PND, syncope, others Gastrointestinal: denies: abdomen distended, abdominal pain, blood streaked bowels, constipated, diarrhea, dysphagia, difficulty swallowing, hematemesis, melena, nausea, poor appetite, poor fluid intake, rectal bleeding, rectal pain, vomiting, others Genitourinary: denies: burning, dysuria, flank pain, frequency, hematuria, incontinence, penile discharge, penile sore, pain, testicle pain, testicle swelling, urgency, others Neurological: denies: dizziness, fainting, headache, left sided numbness, left sided weakness, numbness, paresthesia, pre-existing deficit, right sided numbness, right sided weakness, seizure, speech problems, tingling, tremors, weakness, others Musculoskeletal: reports: others (As stated in HPI) Integumetry: denies: bruises, change in color, change in hair/nails, dryness, laceration, lesions, lumps, rash, wounds, others Allergic/Immunocompromised: denies: Difficulty Healing, Frequent Infections, Hives, Itching, others Hematologic/Lymphatic: denies: anemia, blood clots, easy bleeding, easy bruising, swollen glands, others Endocrine: denies: excessive hunger, excessive sweating, excessive thirst, excessive urination, flushing, intolerance to cold, intolerance to heat, unexplained weight gain, unexplained weight loss, others Psychiatric: denies: anxiety, bipolar disorder, depression, hopeless, panic disorder, schizophrenia, sleepless, suicidal, others Physical Exam General Appearance: No Apparent Distress HEENT: PERRL/EOMI Neck: Full Range of Motion, Non-Tender, Normal Respiratory: Chest Non-Tender, Lungs Clear, No Accessory Muscle Use, No Respiratory Distress, Normal Breath Sounds Cardiovascular: No Murmur, No Gallop, Regular Rate/Rhythm Breast Exam: Deferred Gastrointestinal: Non Tender, No Pulsatile Mass, Soft Genitalia: Deferred Pelvic: Deferred Rectal: Deferred Extremities: Normal capillary refill, Normal range of motion Musculoskeletal : Extremity Location: Back (Slight TTP to bilateral lower lumbar paraspinals noted. No skin changes noted. No bony tenderness to lumbar/thoracic spine noted. Steady gait noted) Neurologic: Alert, No Motor Deficits, Normal Affect, Normal Mood, No Sensory Deficits Cerebellar Function: Normal Reflexes: Normal Skin: Dry, Normal Color, Warm Peripheral Pulses: 2+ femoral (R), 2+ femoral (L), 2+ dorsalis pedis (R), 2+ dorsalis pedis (L), 2+ Radial (R), 2+ Radial (L), 2+ Brachial (R), 2+ Brachial (L) Lymphatic: No Adenopathy Was a procedure done? Was a procedure done?: No Sedation Sedation?: No Back Pain Differential Dx Differential Diagnosis: AAA, Fracture, Urinary Tract Infection, Urolithiasis X-Ray, Labs, Meds, VS Vital Signs Date Time Temp Pulse Resp B/P (MAP) Pulse Ox O2 Delivery O2 Flow Rate FiO2 06/10/25 02:25 Room Air* 0 21 06/10/25 02:25 97.9 101 18 138/88 (105) 96 97.9 06/10/25 01:03 97.9 101 18 138/88 96 97.9 Tylenol 650 mg p.o. ordered Advised to follow up with PCP and pain management in 1-2 days Patient verbalized understanding and agreeable with current plan of care Advised to return to ER immediately if symptoms worsen Time of 1ST Reevaluation: 02:10 Reevaluation 1ST: N/A Patient Education/Counseling: Diagnosis, Treatment, Prognosis, Need For Follow Up Family Education/Counseling: No Family Present SEPSIS Sepsis Screen Date sepsis recognized/suspect: Jun 10, 2025 Time Sepsis recognized/suspect: 010 Recent Procedure: No On Antibiotic Therapy: No Respiratory Rate >20: No Heart Rate >90: Yes Temp<36 C (96.8 F) or >38.3 C: No SBP <90 or MAP <65 mmHG: No New Acute Mental Status Change: No Is the patient on CPAP, BIPAP,: No Physician Orders Acetaminophen Tablet (Tylenol Tablet) (06/10/25 02:30) Vital Signs Date Time Temp Pulse Resp B/P (MAP) Pulse Ox O2 Delivery O2 Flow Rate FiO2 06/10/25 02:25 Room Air* 0 21 06/10/25 02:25 97.9 101 18 138/88 (105) 96 97.9 06/10/25 01:03 97.9 101 18 138/88 96 97.9 Departure 1 Departure Time of Disposition: 02:27 Impression: Primary Impression: Lumbar strain Qualified Codes: S39.012A - Strain of muscle, fascia and tendon of lower back, initial encounter Disposition: HOME / SELF CARE / HOMELESS Condition: Stable e-Prescriptions Acetaminophen (Acetaminophen) 500 Mg Tab 500 MG PO Q4HPRN, #30 TAB 0 Refills Prov: MILEY BERUMEN 06/10/25 Critical Care Note Critical Care Time?: No Stability Stability form required: No Heart Score Heart Score: Heart Score Response (Comments) Value History N/A 0 EKG N/A 0 Age N/A 0 Risk Factors N/A 0 Troponin N/A 0 Total 0 MILEY BERUMEN Jun 10, 2025 02:28
[2025-06-10] MEDS: ACETAMINOPHEN 325 MG TAB PO ONE (02:32)
== END 2025-06-10 02:40 | disposition home or self-care (01) ==
LOC: ER 00:55
DX: S39.012A Strain of muscle, fascia and tendon of lower back, initial encounter (principal); Z79.899 Other long term (current) drug therapy; Z88.5 Allergy status to narcotic agent; Z88.6 Allergy status to analgesic agent; X58.XXXA Exposure to other specified factors, initial encounter; Y93.89 Activity, other specified; Y92.89 Other specified places as the place of occurrence of the external cause; Y99.8 Other external cause status

== ENCOUNTER 2025-07-08 00:02 | Emergency (ER) | payer MEDICAID ==
[~2025-07-08] VITALS: Ht 162.6 cm; Wt 76.8 kg
[2025-07-08 00:05] VITALS: BP 138/104; TEMP 97.7
[2025-07-08 02:53] VITALS: PULSE 87; RESP 18; O2SAT 96
--- NOTE | 2025-07-08 02:54 | ED.PDOC ---
Back pain HPI HPI Comments 34-year-old male presents to ER for pain management of chronic lumbar back pain. Patient presents to ER requesting pain management for his chronic lumbar back pain. He rates his pain an 8/10 diffuse to lower lumbar region that he reports is chronic. Patient presents to ER ambulatory on arrival with steady gait and is well known to checking into ER here for similar complaint. Notes he does have appointment for physical therapy for his back pain on 07/16/25. Denies fever, body aches, chills, night sweats, fatigue, trauma/falls/heavy lifting, numbness/tingling, n/v, chest pain, abdominal pain, extremity weakness, changes in urination/bm or any further symptoms/complaints Chief Complaint: Back Pain Time Seen by MD: 00:32 Primary Care Provider: Kaia Reviewed Notes: Nurses Notes, Medications, Allergies Allergies: Coded Allergies: Cyclobenzaprine (Verified Allergy, Unknown, 01/22/18) Ibuprofen (Verified Allergy, Unknown, 01/22/18) Ketorolac Tromethamine (Verified Allergy, Unknown, 02/28/25) Tramadol (Verified Allergy, Unknown, 01/22/18) Home Meds Active Scripts Acetaminophen (Acetaminophen) 500 Mg Tab, 500 MG PO Q4HPRN, #30 TAB 0 Refills Prov:MILEY BERUMEN 07/08/25 Acetaminophen (Acetaminophen) 500 Mg Tab, 500 MG PO Q4HPRN, #30 TAB 0 Refills Prov:MILEY BERUMEN 06/10/25 Hydrocodone-Acetaminophen (Hydrocodone Bitartrate/AC 5-325 mg) 1 Tab Tab, 1 TAB PO Q6HP PRN, #10 TAB Prov:LILIA HEMPHILL MD 03/22/25 Acetaminophen (Acetaminophen) 500 Mg Tab, 500 MG PO Q4HPRN, #30 TAB 0 Refills Prov:MILEY BERUMEN 03/04/25 Famotidine (PEPCID TABLET) 20 Mg Tb, 1 TAB PO BID PRN, #60 TAB 5 Refills Prov:JESSICA NGUYEN MD 12/10/24 Gabapentin (Once-Daily) (Gabapentin) 300 Mg Tab, 300 MG PO Q6HP PRN, #60 TAB Prov:JESSICA NGUYEN MD 12/10/24 Ondansetron (Zofran) 4 Mg Tab, 4 MG PO Q6HPRN PRN, #30 MG Prov:LIONEL JAMESON DO 02/26/22 Pantoprazole Sodium Sesquihydr (Protonix) 40 Mg Tab, 40 MG PO DAILY, #30 TAB Prov:LIONEL JAMESON DO 02/26/22 Hydrocodone-Acetaminophen (Hydrocodone Bitartrate/AC 10-325 mg) 1 Tab Tab, 1 TAB PO Q6HPRN PRN, #30 TAB Prov:LIONEL JAMESON DO 02/26/22 Pantoprazole Sodium Sesquihydr (Pantoprazole Sodium) 40 Mg Tab, 40 MG PO DAILY, #30 TAB 1 Refill Prov:DEISY QIU MD 08/01/18 Reported Medications Beclomethasone Dipropionate (Qvar Redihaler) 80 Mcg/Act Aer, 80 MCG IN, AER 07/31/18 Albuterol Sulfate (VENTOLIN MDI) 90 Mcg Ih, 90 MCG IN 07/31/18 Hydrocodone-Acetaminophen ([place] 10-325 mg) 1 Tab Tab, 1 TAB PO Q6HP PRN for MODERATE PAIN, TAB 07/31/18 Information Source: Patient Mode of Arrival: Ambulatory Past Medical History PAST MEDICAL HISTORY: Asthma Past Medical History (Other): Chronic lumbar back pain Surgical History: Denies all surgeries Family History Family History: Unknown Social History Smoker: Cigarettes, Less Than 1 Pack/Day Alcohol: Rarely, Occasionally Drugs: Marijuana Lives In: Home Constitutional: denies: chills, diaphoresis, fatigue, fever, malaise, sweats, weakness, others EENTM: denies: blurred vision, double vision, ear bleeding, ear discharge, ear drainage, ear pain, ear ringing, eye pain, eye redness, hearing loss, mouth pain, mouth swelling, nasal discharge, nose bleeding, nose congestion, nose pain, photophobia, tearing, throat pain, throat swelling, voice changes, others Respiratory: denies: cough, hemoptysis, orthopnea, SOB at rest, shortness of breath, SOB with excertion, stridor, wheezing, others Cardiovascular: denies: chest pain, dizzy spells, diaphoresis, Dyspnea on exertion, edema, irregular heart beat, left arm pain, lightheadedness, palpitations, PND, syncope, others Gastrointestinal: denies: abdomen distended, abdominal pain, blood streaked bowels, constipated, diarrhea, dysphagia, difficulty swallowing, hematemesis, melena, nausea, poor appetite, poor fluid intake, rectal bleeding, rectal pain, vomiting, others Genitourinary: denies: burning, dysuria, flank pain, frequency, hematuria, incontinence, penile discharge, penile sore, pain, testicle pain, testicle swelling, urgency, others Neurological: denies: dizziness, fainting, headache, left sided numbness, left sided weakness, numbness, paresthesia, pre-existing deficit, right sided numbness, right sided weakness, seizure, speech problems, tingling, tremors, weakness, others Musculoskeletal: reports: others (As stated in HPI) Integumetry: denies: bruises, change in color, change in hair/nails, dryness, laceration, lesions, lumps, rash, wounds, others Allergic/Immunocompromised: denies: Difficulty Healing, Frequent Infections, Hives, Itching, others Hematologic/Lymphatic: denies: anemia, blood clots, easy bleeding, easy bruising, swollen glands, others Endocrine: denies: excessive hunger, excessive sweating, excessive thirst, excessive urination, flushing, intolerance to cold, intolerance to heat, unexplained weight gain, unexplained weight loss, others Psychiatric: denies: anxiety, bipolar disorder, depression, hopeless, panic disorder, schizophrenia, sleepless, suicidal, others Physical Exam General Appearance: No Apparent Distress HEENT: PERRL/EOMI Neck: Full Range of Motion, Non-Tender, Normal Respiratory: Chest Non-Tender, Lungs Clear, No Accessory Muscle Use, No Respiratory Distress, Normal Breath Sounds Cardiovascular: No Murmur, No Gallop, Regular Rate/Rhythm Breast Exam: Deferred Gastrointestinal: Non Tender, No Pulsatile Mass, Soft Genitalia: Deferred Pelvic: Deferred Rectal: Deferred Extremities: No calf tenderness, Normal capillary refill, Normal range of motion Musculoskeletal : Extremity Location: Back (Slight TTP to bilateral lower lumbar paraspinals noted. No skin changes noted. No bony tenderness to lumbar/thoracic spine noted. Steady gait noted) Neurologic: Alert, gear lapper II-XII nml as Tested, No Motor Deficits, Normal Affect, Normal Mood, No Sensory Deficits Cerebellar Function: Normal Reflexes: Normal Skin: Dry, Normal Color, Warm Peripheral Pulses: 2+ dorsalis pedis (R), 2+ dorsalis pedis (L), 2+ Radial (R), 2+ Radial (L), 2+ Brachial (R), 2+ Brachial (L) Lymphatic: No Adenopathy Was a procedure done? Was a procedure done?: No Sedation Sedation?: No Back Pain Differential Dx Differential Diagnosis: AAA, Fracture, Urinary Tract Infection, Urolithiasis X-Ray, Labs, Meds, VS Vital Signs Date Time Temp Pulse Resp B/P (MAP) Pulse Ox O2 Delivery O2 Flow Rate FiO2 07/08/25 02:53 87 18 96 07/08/25 00:05 97.7 87 18 138/104 96 97.7 Tylenol 650 mg p.o. ordered Previous chart visits reviewed Advised to follow up with PCP and pain management in 1-2 days Patient verbalized understanding and agreeable with current plan of care Advised to return to ER immediately if symptoms worsen Time of 1ST Reevaluation: 02:24 Reevaluation 1ST: N/A Patient Education/Counseling: Diagnosis, Treatment, Prognosis, Need For Follow Up Family Education/Counseling: No Family Present SEPSIS Sepsis Screen Date sepsis recognized/suspect: Jul 08, 2025 Time Sepsis recognized/suspect: 0008 Recent Procedure: No On Antibiotic Therapy: No Respiratory Rate >20: No Heart Rate >90: No Temp<36 C (96.8 F) or >38.3 C: No SBP <90 or MAP <65 mmHG: No New Acute Mental Status Change: No Is the patient on CPAP, BIPAP,: No Physician Orders Acetaminophen Tablet (Tylenol Tablet) (07/08/25 03:00) Vital Signs Date Time Temp Pulse Resp B/P (MAP) Pulse Ox O2 Delivery O2 Flow Rate FiO2 07/08/25 02:53 87 18 96 07/08/25 00:05 97.7 87 18 138/104 96 97.7 Departure 1 Departure Time of Disposition: 02:53 Impression: Primary Impression: Chronic lumbar pain Qualified Codes: M54.50 - Low back pain, unspecified; G89.29 - Other chronic pain Disposition: 01 HOME / SELF CARE / HOMELESS Condition: Stable e-Prescriptions Acetaminophen (Acetaminophen) 500 Mg Tab 500 MG PO Q4HPRN, #30 TAB 0 Refills Prov: MILEY BERUMEN 07/08/25 Discharged With: Self Critical Care Note Critical Care Time?: No Stability Stability form required: No Heart Score Heart Score: Heart Score Response (Comments) Value History N/A 0 EKG N/A 0 Age N/A 0 Risk Factors N/A 0 Troponin N/A 0 Total 0 MILEY BERUMEN Jul 08, 2025 02:54
[2025-07-08] MEDS: ACETAMINOPHEN 325 MG TAB PO ONE (03:01)
== END 2025-07-08 03:09 | disposition home or self-care (01) ==
LOC: ER 00:02
DX: G89.29 Other chronic pain (principal); M54.50 Low back pain, unspecified; F17.210 Nicotine dependence, cigarettes, uncomplicated; J45.909 Unspecified asthma, uncomplicated; Z88.6 Allergy status to analgesic agent; Z88.5 Allergy status to narcotic agent; Z79.899 Other long term (current) drug therapy